=== PATIENT | female | born 1965 | race Hispanic/Latino ===

== ENCOUNTER → 2018-01-14 | Day surgery (SDC) | payer MEDICARE ==
[~2018-01-14] VITALS: Ht 149.9 cm; Wt 105.7 kg
[2018-01-14] VITALS (13 sets, daily range): BP systolic 94–177; BP diastolic 46–78
[~2018-01-14] MED LIST: ACETAMINOPHEN 325 MG TAB ONE; ASPIR 8181 MG PO; ATORVASTATIN CA20 MG PO; BUPROPION HCL75 MG PO; FENTANYL CITRATE/PF 100MCG/2 ML INJ ONE; GABAPENTIN300 MG PO; HEPARIN SOD (PORCINE) 1000 UNIT/ML 30ML ONE; HEPARIN SOD/SOD CHLORIDE 2,000 ML ONE; IOPAMIDOL 370 MG/ML 200 ML INFUS..BTL INJ ONE; LEVETIRACETAM500 MG PO; LEXAPRO10 MG PO; LIDOCAINE HCL 1% LOCAL INJ 20 ML VIAL ONE; LINZESS PO; MIDAZOLAM HCL 2 MG/2 ML VIAL ONE; NITROGLYCERIN/D5W 200 MCG/ML 250 ML ONE; OMEPRAZOLE40 MG PO; RANITIDINE HCL300 M1 PO; SODIUM CHLORIDE 0.9% 1000ML 1,000 ML ONE; TIZANIDINE HCL4 MG PO; VERAPAMIL HCL 2.5 MG/ML 2 ML VIAL ONE
--- OUTSIDE RECORDS SUMMARY | 2018-01-14 08:07 | XMS REPORT ---
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 Name Role Phone Deidra Nickerson CP Unavailable Allergies, Adverse Reactions, Alerts Substance Reaction Event Type penicillin rash Drug Allergy Problems Problem Type Condition Code Onset Dates Condition Status Assessment Panic attack F41.0 Active Problem Low back pain M54.5 Active Problem Diabetes mellitus E11.9 Active Problem IBS (irritable bowel syndrome) K58.9 Active Problem Recurrent falls R29.6 Active Problem Panic attack F41.0 Active Problem Anxiety F41.9 Active Problem Hallux valgus (acquired), unspecified foot M20.10 Active Problem Hypertension I10 Active Problem HLD (hyperlipidemia) E78.5 Active Medications Medication Code System Code Instructions Start Date End Date Status Dosage Losartan Potassium-HCTZ [facility] 18103422167 100-25 MG Orally Once a day Active 1 tablet Gabapentin [facility] [address]-19 300 MG Orally Three times a day Active 2 capsule Montelukast Sodium [facility] 67947404820 10 mg Orally Once a day Active 1 tablet in the evening Dicyclomine HCl [facility] 10359716321 10 MG Orally three times a day (tid) as needed (prn) Active 1 tablet Aspirin [facility] 9[address]71-44132 81 MG Orally Once a day Active 1 tablet Wal-Zyr D [facility] [address]-35 5-120 MG Orally Twice a day Active 1 tablet Omeprazole [facility] [address]-15 40 MG Orally once a day Active 1 capsule Cholestyramine [facility] [address]-19 Active not defined Acetaminophen-Codeine #3 [facility] [address]-71 300-30 MG Orally every 6 hrs Active 1 tablet as needed Lipitor [facility] [address]-79 40 MG Orally Once a day Mar 15, 2016 Active 1 tablet Fluticasone Propionate (Inhal) [facility] [address]-06 50 MCG/BLIST Inhalation Twice a day Active 1 puff Hydrocodone-Acetaminophen [facility] [address]-72 7.5-325 MG Orally every 6 hrs Active 1 tablet as needed BuPROPion HCl [facility] [address]-38 75 MG Orally twice a day (bid) June 28, 2016 Active 1 tablet Losartan Potassium-HCTZ [facility] 32344951812 0 Active TAKE 1 TABLET BY MOUTH EVERY DAY Simvastatin [facility] 93868411941 40 mg Orally Once a day Active 1 tablet in the evening Amlodipine Besylate [facility] 48895115067 5 MG Orally Once a day Active 1 tablet Escitalopram Oxalate [facility] [address]-45 20 mg Orally Once a day Active 1 tablet Meloxicam [facility] [address]-62 15 MG Orally Once a day Active 1 tablet Vital Signs Date/Time: June 28, 2016 BMI 45.04 Index Weight 223 lbs Height 59 in Temperature 97.7 F Blood Pressure Diastolic 80 mm Hg Blood Pressure Systolic 105 mm Hg Results No Known Results Summary Purpose eClinicalWorks Submission
--- OUTSIDE RECORDS SUMMARY | 2018-01-14 08:07 | XMS REPORT ---
Author Author Deidra Nickerson Organization eClinicalWorks Address Unknown Phone Unavailable Care Team Providers Care Advertising Executive Name Role Phone Deidra Nickerson CP Unavailable Allergies No Known Allergies Problems Problem Type Condition Code Onset Dates Condition Status Problem Low back pain M54.5 Active Problem Anxiety F41.9 Active Problem Hallux valgus (acquired), unspecified foot M20.10 Active Problem Diabetes mellitus E11.9 Active Problem HTN (hypertension), benign I10 Active Problem Panic attack F41.0 Active Problem Age-related osteoporosis without current pathological fracture M81.0 Active Problem Hypertension I10 Active Problem HLD (hyperlipidemia) E78.5 Active Problem IBS (irritable bowel syndrome) K58.9 Active Problem Recurrent falls R29.6 Active Medications No Known Medications Results No Known Results Summary Purpose eClinicalWorks Submission
--- OUTSIDE RECORDS SUMMARY | 2018-01-14 08:07 | XMS REPORT ---
Author Author Deidra Nickerson [facility] eClinicalWorks Address Unknown Phone Unavailable Care Team Providers Care Shape Hand Name Role Phone Deidra Nickerson CP Unavailable Allergies, Adverse Reactions, Alerts Substance Reaction Event Type penicillin rash Drug Allergy Problems Problem Type Condition Code Onset Dates Condition Status Problem Hallux valgus (acquired), unspecified foot M20.10 Active Problem HLD (hyperlipidemia) E78.5 Active Problem Anxiety F41.9 Active Problem Age-related osteoporosis without current pathological fracture M81.0 Active Problem HTN (hypertension), benign I10 Active Problem Seizure disorder G40.909 Active Problem Recurrent falls R29.6 Active Problem Hypertension I10 Active Problem Panic attack F41.0 Active Problem IBS (irritable bowel syndrome) K58.9 Active Assessment Low back pain M54.5 Active Assessment Hypertension I10 Active Assessment Risk for falls Z91.81 Active Assessment Seizure disorder G40.909 Active Assessment Diabetes mellitus E11.9 Active Assessment HTN (hypertension), benign I10 Active Assessment HLD (hyperlipidemia) E78.5 Active Problem Diabetes mellitus E11.9 Active Assessment Panic attack F41.0 Active Problem Low back pain M54.5 Active Medications Medication Code System Code Instructions Start Date End Date Status Dosage Linzess [facility] 72640777424 145 MCG Orally Once a day Active 1 capsule Ibuprofen [facility] 86246749522 200 MG Orally Three times a day Active 1 tablet with food or milk as needed Escitalopram Oxalate [facility] 48611075709 20 mg Orally Once a day Active 1 tablet Fluticasone Propionate (Inhal) [facility] 62580864960 50 MCG/BLIST Inhalation Twice a day Active 1 puff Omeprazole ND 96539067964 40 MG Orally once a day Active 1 capsule Doxepin HCl [facility] 27992710479 5 % Externally Four times a day Active 1 application to affected area as needed Tizanidine HCl [facility] 44530438729 4 MG Orally Three times a day Active 1 tablet as needed Gabapentin [facility] 71268635349 300 MG Orally Three times a day Active 2 capsule BuPROPion HCl [facility] 23159371281 75 MG Orally twice a day (bid) Active 1 tablet Levetiracetam [facility] 12530721960 500 MG Orally every 12 hrs Active 1 tablet Aspirin [facility] 31745310747 81 MG Orally Once a day Active 1 tablet Lipitor [facility] 11280695077 40 MG Orally Once a day Mar 15, 2016 Active 1 tablet Ranitidine HCl [facility] 14595803286 300 MG Orally Once a day Active 1 tablet at bedtime Hydrocodone-Acetaminophen [facility] 80199978983 7.5-325 MG Orally every 6 hrs Active 1 tablet as needed Cholestyramine [facility] [address]-79 Active not defined Vital Signs Date/Time: July 22, 2017 BMI 44.63 Index Weight 221 lbs Height 59 in Temperature 99.4 F Blood Pressure Diastolic 106 mm Hg Blood Pressure Systolic 155 mm Hg Results No Known Results Summary Purpose eClinicalWorks Submission
--- OUTSIDE RECORDS SUMMARY | 2018-01-14 08:07 | XMS REPORT ---
Author Author Deidra Nickerson [facility] eClinicalWorks Address Unknown Phone Unavailable Care Team Providers Care Buyers' Agent Name Role Phone Deidra Nickerson CP Unavailable Allergies, Adverse Reactions, Alerts Substance Reaction Event Type penicillin rash Drug Allergy Problems Problem Type Condition Code Onset Dates Condition Status Problem Low back pain M54.5 Active Problem Anxiety F41.9 Active Problem Hallux valgus (acquired), unspecified foot M20.10 Active Problem HTN (hypertension), benign I10 Active Problem Panic attack F41.0 Active Problem Age-related osteoporosis without current pathological fracture M81.0 Active Problem Hypertension I10 Active Problem HLD (hyperlipidemia) E78.5 Active Problem IBS (irritable bowel syndrome) K58.9 Active Problem Recurrent falls R29.6 Active Assessment HTN (hypertension), benign I10 Active Assessment HLD (hyperlipidemia) E78.5 Active Assessment Age-related osteoporosis without current pathological fracture M81.0 Active Problem Diabetes mellitus E11.9 Active Medications Medication Code System Code Instructions Start Date End Date Status Dosage Lipitor [facility] 33808102199 40 MG Orally Once a day Mar 15, 2016 Active 1 tablet Aspirin [facility] 01322368607 81 MG Orally Once a day Active 1 tablet Amlodipine Besylate ND 75536923647 5 MG Orally Once a day Active 1 tablet Gabapentin [facility] 20037860904 300 MG Orally Three times a day Active 2 capsule Dicyclomine HCl [facility] 37073057326 10 MG Orally three times a day (tid) as needed (prn) Mar 10, 2017 Active 1 tablet Hydrocodone-Acetaminophen [facility] 18272402621 7.5-325 MG Orally every 6 hrs Active 1 tablet as needed Losartan Potassium-HCTZ ND 24894665662 100-25 MG Orally Once a day Active 1 tablet Escitalopram Oxalate [facility] 77028902785 20 mg Orally Once a day Active 1 tablet Cholestyramine [facility] [address]-02 Active not defined BuPROPion HCl [facility] 02171808274 75 MG Orally twice a day (bid) June 28, 2016 Active 1 tablet Montelukast Sodium [facility] 58314691521 10 mg Orally Once a day Active 1 tablet in the evening Omeprazole [facility] 65830071199 40 MG Orally once a day Active 1 capsule Fluticasone Propionate (Inhal) [facility] 59032502033 50 MCG/BLIST Inhalation Twice a day Active 1 puff Meloxicam [facility] 96998160673 15 MG Orally Once a day Active 1 tablet Wal-Zyr D [facility] 65811415110 5-120 MG Orally Twice a day Active 1 tablet Vital Signs Date/Time: Mar 05, 2017 BMI wheelchair Index Weight wheelchair lbs Height 59 in Temperature 98.0 F Blood Pressure Diastolic 74 mm Hg Blood Pressure Systolic 134 mm Hg Results No Known Results Summary Purpose eClinicalWorks Submission
--- OUTSIDE RECORDS SUMMARY | 2018-01-14 08:07 | XMS REPORT ---
Author Author Deidra Nickerson [facility] eClinicalWorks Address Unknown Phone Unavailable Care Team Providers Care Buggyman Name Role Phone Deidra Nickerson CP Unavailable Allergies, Adverse Reactions, Alerts Substance Reaction Event Type penicillin rash Drug Allergy Encounters Encounter Location Date [facility]LLOW [place] [facility] [place] September 26, 2015 3 MONTH F/U [facility] Nov 10, 2015 3 month follow up [facility] [place] Feb 09, 2016 Problems Problem Type Condition ICD-9 Code Onset Dates Condition Status Assessment HLD (hyperlipidemia) E78.5 Active Problem Diabetes mellitus E11.9 Active Assessment Diabetes mellitus E11.9 Active Problem Recurrent falls R29.6 Active Problem Hypertension I10 Active Problem IBS (irritable bowel syndrome) K58.9 Active Problem Hallux valgus (acquired), unspecified foot M20.10 Active Problem Low back pain M54.5 Active Problem HLD (hyperlipidemia) E78.5 Active Problem Anxiety F41.9 Active Assessment Other acute nonsuppurative otitis media of right ear, recurrence not specified H65.191 Active Assessment Low back pain M54.5 Active Assessment Hypertension I10 Active Medications Medication Code System Code Instructions Start Date End Date Status Dosage Dicyclomine HCl [facility] [address]-06 10 MG Orally twice a day (bid) June 08, 2016 Active 1 capsule Omeprazole [facility] [address]-08 40 MG Orally once a day Active 1 capsule Meloxicam [facility] [address]-81 15 MG Orally Once a day Active 1 tablet Simvastatin [facility] 83849307545 40 mg Orally Once a day Active 1 tablet in the evening Amlodipine Besylate [facility] 57537509316 5 MG Orally Once a day Active 1 tablet Escitalopram Oxalate [facility] [address]-70 20 mg Orally Once a day Active 1 tablet Losartan Potassium-HCTZ [facility] 26340605227 100-25 MG Orally Once a day Active 1 tablet Losartan Potassium-HCTZ [facility] 18320004150 0 Active TAKE 1 TABLET BY MOUTH EVERY DAY Aspirin [facility] 28953-59006 81 MG Orally Once a day Active 1 tablet Cholestyramine [facility] [address]-86 Active Unknown Gabapentin [facility] [address]-64 300 MG Orally Three times a day Active 2 capsule Fluticasone Propionate (Inhal) [facility] [address]-85 50 MCG/BLIST Inhalation Twice a day Active 1 puff Levaquin [facility] [address]-95 500 MG Orally Once a day Feb 09, 2016 Feb 16, 2016 Active 1 tablet Hydrocodone-Acetaminophen [facility] [address]-50 7.5-325 MG Orally every 6 hrs Active 1 tablet as needed Wal-Zyr D [facility] [address]-62 5-120 MG Orally Twice a day Active 1 tablet Montelukast Sodium [facility] 23052911809 10 mg Orally Once a day Active 1 tablet in the evening Acetaminophen-Codeine #3 [facility] [address]-22 300-30 MG Orally every 6 hrs Active 1 tablet as needed Social History Social History Element Qualifiers Date Reported Use of recreational / street drugs? . Answer: No Feb 09, 2016 Sexual Hx: . Had sex in the last 12 months (vaginal, oral, or anal)?: No, Have you ever had an STD?: No Feb 09, 2016 Do you have pets? . Status: No Feb 09, 2016 Tobacco Use: . Are you a: never smoker Feb 09, 2016 Marital Status: . Single Feb 09, 2016 Caffeine intake? . Status: Yes, What type: Soft Drinks Feb 09, 2016 Do you exercise? . Answer: No Feb 09, 2016 Do you drink alcohol? . Status: No Feb 09, 2016 Travel outside [place]: . no Feb 09, 2016 Occupation: . disabled Feb 09, 2016 Vital Signs Date/Time: Feb 09, 2016 Weight 218 lbs Height 59 in Temperature 97.4 F Blood Pressure Diastolic 79 mm Hg Blood Pressure Systolic 104 mm Hg Immunizations Vaccine Administration Date Influenza Feb 09, 2016 Summary Purpose eClinicalWorks Submission
--- OUTSIDE RECORDS SUMMARY | 2018-01-14 08:07 | XMS REPORT | Continuity of Care Document ---
Author Author [facility] Interface Address Unknown Phone Unavailable Problems Problem Status Onset Date Classification Date Reported Comments Source Adjustment disorder with mixed anxiety and depressed mood Active Diagnosis 03/15/2015 [id number] DM Active Diagnosis 03/15/2015 [id number] HTN Active Problem 03/15/2015 2.16.840.1.541799.4.391.11.22385 RML pneumonia Active Problem 03/15/2015 [id number] Panic attack Active Problem 11/28/2017 Enayet Rahim Low back pain Active Problem 11/28/2017 Enayet Rahim Diabetes mellitus Active Diagnosis 11/28/2017 Enayet Rahim IBS Active Problem 11/28/2017 Enayet Rahim Recurrent falls Active Problem 11/28/2017 Enayet Rahim Anxiety Active Diagnosis 11/28/2017 Enayet Rahim Hallux valgus , unspecified foot Active Problem 11/28/2017 Enayet Rahim Hypertension Active Problem 11/28/2017 Enayet Rahim HLD Active Problem 11/28/2017 [id number],Enayet Rahim Seizure disorder Active Diagnosis 11/28/2017 Enayet Rahim Age-related osteoporosis without current pathological fracture Active Diagnosis 11/28/2017 Enayet Rahim Type 2 diabetes mellitus with diabetic polyneuropathy Active Problem 11/28/2017 Enayet Rahim HTN , benign Active Problem 11/28/2017 Enayet Rahim Chronic seasonal allergic rhinitis due to pollen Active Diagnosis 09/16/2016 Enayet Rahim GERD without esophagitis Active Problem 11/28/2017 Enayet Rahim Bilateral hand swelling Active Diagnosis 10/31/2017 Enayet Rahim Risk for falls Active Diagnosis 07/28/2017 German Ramirez Hemoglobin A1c less than 7.0% Active Diagnosis 05/09/2017 German Ramirez At risk for falling Active Diagnosis 11/28/2017 German Ramirez Morbid obesity due to excess calories Active Diagnosis 11/28/2017 German Ramirez Body mass index of 45.0-49.9 in adult Active Diagnosis 11/28/2017 German Ramirez Malignant neoplasm of cervix, unspecified site Active Diagnosis 11/28/2017 German Ramirez Nausea Active Diagnosis 10/02/2015 German Ramirez Acute infectious nonbacterial gastroenteritis Active Diagnosis 10/02/2015 German Ramirez Hypokalemia Active Diagnosis 10/02/2015 German Ramirez Sore throat Active Diagnosis 05/12/2016 German Ramirez Pure hypercholesterolemia Active Diagnosis 05/12/2016 German Ramirez Acute cystitis without hematuria Active Diagnosis 05/12/2016 German Ramirez Fracture, finger, distal phalanx Active Diagnosis 11/27/2015 German Ramirez Other acute nonsuppurative otitis media of right ear, recurrence not specified Active Diagnosis 02/13/2016 German Ramirez Medications Medication Details Route Status Patient Instructions Ordering Provider Order Date Source Fluticasone Propionate (Inhal) 1 puff Inhalation Active 50 MCG/BLIST Inhalation Twice a day [facility] 05/19/2018 German Ramirez Fluticasone Propionate (Inhal) 1 puff Inhalation Active 50 MCG/BLIST Inhalation Twice a day [facility] 11/25/2017 German Ramirez Fluticasone Propionate 1 spray in each nostril Nasally Active 50 MCG/ACT Nasally Once a day [facility] 11/25/2017 German Ramirez Furosemide 1 tablet Orally Active 20 MG Orally three times a week as needed for swelling. [facility] 10/21/2017 German Ramirez Dicyclomine HCl 1 tablet Orally Active 10 MG Orally three times a day (tid) as needed (prn) [facility] 03/10/2017 German Ramirez Levocetirizine Dihydrochloride 1 tablet in the evening Orally Active 5 MG Orally Once a day [facility] 09/11/2016 German Ramirez BuPROPion HCl 1 tablet Orally Active 75 MG Orally twice a day (bid) [facility] 06/28/2016 German Ramirez BuPROPion HCl 1 tablet Orally Active 75 MG Orally twice a day (bid) [facility] 06/28/2016 German Ramirez Dicyclomine HCl 1 capsule Orally Active 10 MG Orally twice a day (bid) [facility] 06/08/2016 German Ramirez Levaquin 1 tablet Orally Active 500 MG Orally Once a day [facility] 05/09/2016 German Ramirez Lipitor 1 tablet Orally Active 40 MG Orally Once a day [facility] 03/15/2016 German Ramirez Lipitor 1 tablet Orally Active 40 MG Orally Once a day [facility] 03/15/2016 German Ramirez Levaquin 1 tablet Orally Active 500 MG Orally Once a day [facility] 02/09/2016 German Ramirez Dicyclomine HCl 1 tablet Orally Active 10 MG Orally three times a day (tid) as needed (prn) [facility] 11/10/2015 German Ramirez Flagyl 1 tablet Orally Active 500 mg Orally every 8 hrs [facility] 09/26/2015 German Ramirez Cipro 1 tablet Orally Active 500 mg Orally Twice a day [facility] 09/26/2015 German Ramirez Anusol HC-1 as directed Externally Active 1 % Externally [facility] 03/06/2015 05.16.830.1.403215.4.391.11. Omeprazole 1 capsule Orally Active 20 mg Orally twice a day (bid) Krishan 05.16.830.1.394080.4.391.11. Zyrtec-D Allergy & Congestion 1 tablet Orally Active 5-120 MG Orally Twice a day Krishan 840.1.187600.4.391.11 Vanessa Aspirin EC Low Dose 1 tablet Orally Active 81 MG Orally Once a day Krishan 05.16.830.1.320231.4.391.11 Montelukast Sodium 1 tablet in the evening Orally Active 10 MG Orally Once a day [facility] [id number] Dextromethorphan HBr 15 ml as needed Orally Active 20 MG/15ML Orally every 8 hrs [facility] 840.1.700003.4.391. Metronidazole 1 application to affected area Externally Active 0.75 % Externally Once a day [facility] 840.1.609349.4.391. Vitamin D 1 capsule Orally Active 47822 UNIT Orally once a week [facility] 840.1.881552.4.391. Simvastatin 1 tablet in the evening Orally Active 40 MG Orally Once a day [facility] 840.1.716609.4.391. Losartan Potassium-HCTZ 1 tablet Orally Active 100-12.5 MG Orally Once a day [facility] 05.16.830.1.231915.4.391. Levofloxacin 1 tablet Orally Active 750 MG Orally every 24hrs w/ plenty of water [facility] 05.16.830.1.490583.4.391. Ibuprofen 1 tablet Orally Active 600 MG Orally four times a day (qid) [place] [id number]. Fluticasone Propionate 1 spray in each nostril Nasally Active 50 MCG/ACT Nasally Once a day [place] [id number]. Losartan Potassium-HCTZ 1 tablet Orally Active 100-25 MG Orally Once a day as needed [facility] Gabapentin 2 capsule Orally Active 300 MG Orally [facility] Montelukast Sodium 1 tablet in the evening Orally Active 10 mg Orally [facility] a [facility] Dicyclomine HCl 1 tablet Orally Active 10 MG Orally three times a day (tid) as needed (prn) [facility] Aspirin 1 tablet Orally Active 81 MG Orally Once a day [facility] [employer] D 1 tablet Orally Active 5-120 MG Orally Twice a day [facility] Omeprazole 1 capsule Orally Active 40 MG Orally once a day [facility] Cholestyramine not defined NA Active [facility] Acetaminophen-Codeine #3 1 tablet as needed Orally Active 300- 30 MG Orally every 6 hrs [facility] Fluticasone Propionate (Inhal) 1 puff Inhalation Active 50 MCG/BLIST Inhalation Twice a day [facility] Hydrocodone-Acetaminophen 1 tablet as needed Orally Active 7.5- 325 MG Orally every 6 hrs [facility] Losartan Potassium-HCTZ TAKE 1 TABLET BY MOUTH EVERY DAY NA Active 0 [facility] Simvastatin 1 tablet in the evening Orally Active 40 mg Orally Once a day [facility] Amlodipine Besylate 1 tablet Orally Active 5 MG Orally Once a day [facility] Escitalopram Oxalate 1 tablet Orally Active 20 mg Orally Once a day [address]16.840.1.454643.4.391.11.14453[facility] Meloxicam 1 tablet Orally Active 15 MG Orally Once a day [place] [id number] BuPROPion HCl 1 tablet Orally Active 75 MG Orally twice a day (bid) [facility] Escitalopram Oxalate 1 tablet Orally Active 20 mg Orally Once a day [facility] Hydrocodone-Acetaminophen 1 tablet as needed Orally Active 7.5- 325 MG Orally every 6 hrs [facility] Tizanidine HCl 1 tablet as needed Orally Active 4 MG Orally Three times a day [facility] Gabapentin 2 capsule Orally Active 300 MG Orally Three times a day [facility] Omeprazole 1 capsule Orally Active 40 MG Orally once a day [facility] Ibuprofen 1 tablet with food or milk as needed Orally Active 200 MG Orally Three times a day [facility] Ranitidine HCl 1 tablet at bedtime Orally Active 300 MG Orally Once a day [facility] Aspirin 1 tablet Orally Active 81 MG Orally Once a day [facility] Linzess 1 capsule Orally Active 145 MCG Orally Once a day [facility] Levetiracetam 1 tablet Orally Active 500 MG Orally every 12 hrs [facility] Doxepin HCl 1 application to affected area as needed Externally Active 5 % Externally Four times a day [facility] Gabapentin 2 capsule Orally Active 300 MG Orally Three times a day [facility] Fluticasone Propionate (Inhal) 1 puff Inhalation Active 50 MCG/BLIST Inhalation Twice a day [facility] Meloxicam 1 tablet Orally Active 15 MG Orally Once a day [facility] [employer] D 1 tablet Orally Active 5-120 MG Orally Twice a day [facility] Omeprazole 1 capsule Orally Active 20 mg Orally twice a day (bid) [facility] Tramadol HCl 1 tablet as needed by mouth Active 50 mg by mouth every eight hours FOR PAIN [facility] Edgaringrid S[facility]u Allergies, Adverse Reactions, Alerts Substance Category Reaction Severity Reaction type Status Date Reported Comments Source penicillin Adverse Reaction rash Adverse Reaction Active 11/25/2017 Edgarbiancaet lam Immunizations Immunization Date Given Site Status Last Updated Comments Source FLUCELVAX QUADRIVALENT 05/07/2017 completed Barronet [facility] Influenza 02/09/2016 completed Enbiancaraine Sanchesrenum Results Order Name Results Value Reference Range Date Interpretation Comments Source Vital Signs Vital Sign Value Date Comments Source Weight 232 11/25/2017 Enayet Rahim Height 59 11/25/2017 Enayet Rahim Temperature Oral (F) 97.6 F 11/25/2017 Enayet Rahim Diastolic (mm Hg) 91 11/25/2017 Enayet Rahim Systolic (mm Hg) 150 11/25/2017 Enayet Rahim Weight 236 10/21/2017 Enayet Rahim Height 59 10/21/2017 Enayet Rahim Temperature Oral (F) 98.5 F 10/21/2017 Enayet Rahim Diastolic (mm Hg) 91 10/21/2017 Enayet Rahim Systolic (mm Hg) 139 10/21/2017 Enayet Rahim Weight 221 08/14/2017 Enayet Rahim Height 59 08/14/2017 Enayet Rahim Temperature Oral (F) 98.6 F 08/14/2017 Enayet Rahim Diastolic (mm Hg) 100 08/14/2017 Enayet Rahim Systolic (mm Hg) 140 08/14/2017 Enayet Rahim Weight 221 07/22/2017 Enayet Rahim Height 59 07/22/2017 Enayet Rahim Temperature Oral (F) 99.4 F 07/22/2017 Enayet Rahim Diastolic (mm Hg) 106 07/22/2017 Enayet Rahim Systolic (mm Hg) 155 07/22/2017 Enayet Rahim Weight 221 05/07/2017 Enayet Rahim Height 59 05/07/2017 Enayet Rahim Temperature Oral (F) 98.7 F 05/07/2017 Enayet Rahim Diastolic (mm Hg) 101 05/07/2017 Enayet Rahim Systolic (mm Hg) 138 05/07/2017 Enayet Rahim Height 59 03/05/2017 Enayet Rahim Temperature Oral (F) 98.0 F 03/05/2017 Enayet Rahim Diastolic (mm Hg) 74 03/05/2017 Enayet Rahim Systolic (mm Hg) 134 03/05/2017 Enayet Rahim Weight 235 09/11/2016 Enayet Rahim Height 59 09/11/2016 Enayet Rahim Temperature Oral (F) 97.8 F 09/11/2016 Enayet Rahim Diastolic (mm Hg) 80 09/11/2016 Enayet Rahim Systolic (mm Hg) 110 09/11/2016 Enayet Rahim Weight 223 06/28/2016 Enayet Rahim Height 59 06/28/2016 Enayet Rahim Temperature Oral (F) 97.7 F 06/28/2016 Enayet Rahim Diastolic (mm Hg) 80 06/28/2016 Enayet Rahim Systolic (mm Hg) 105 06/28/2016 Enayet Rahim Weight 218 05/09/2016 Enayet Rahim Height 59 05/09/2016 Enayet Rahim Temperature Oral (F) 97.8 F 05/09/2016 Enayet Rahim Diastolic (mm Hg) 85 05/09/2016 Enayet Rahim Systolic (mm Hg) 141 05/09/2016 Enayet Rahim Weight 218 02/09/2016 Enayet Rahim Height 59 02/09/2016 Enayet Rahim Temperature Oral (F) 97.4 F 02/09/2016 Enayet Rahim Diastolic (mm Hg) 79 02/09/2016 Enayet Rahim Systolic (mm Hg) 104 02/09/2016 Enayet Rahim Weight 211 11/10/2015 Enayet Rahim Height 59 11/10/2015 Enayet Rahim Temperature Oral (F) 97.4 F 11/10/2015 Enayet Rahim Diastolic (mm Hg) 95 11/10/2015 Enayet Rahim Systolic (mm Hg) 132 11/10/2015 Enayet Rahim Weight 221 09/26/2015 Enayet Rahim Height 59 09/26/2015 Enayet Rahim Temperature Oral (F) 97.4 F 09/26/2015 Enayet Rahim Weight 253 03/06/2015 [id number] Height 60 03/06/2015 2.16.840.1.926842.4.391.11.34946 Temperature Oral (F) 98.3 F 03/06/2015 2.16.840.1.571860.4.391.11.51850 Heart Rate 67 03/06/2015 2.16.840.1.251355.4.391.11.67084 Diastolic (mm Hg) 77 03/06/2015 2.16.840.1.356687.4.391.11.68589 Systolic (mm Hg) 153 03/06/2015 [id number] Encounters Location Location Details Encounter Type Encounter Number Reason For Visit Attending Provider ADM Date DC Date Status Source [facility] F/U [id number] 03/06/2015 03/06/2015 [id number] German Ramirez MD, [facility] [id number] 09/26/2015 09/26/2015 German Ramirez MD, [facility] [id number] 09/26/2015 09/26/2015 German Ramirez MD, [facility] [id number] 09/26/2015 09/26/2015 German Ramirez MD, [facility] [id number] 09/26/2015 09/26/2015 German Ramirez MD, [facility] [id number] 09/26/2015 09/26/2015 German Ramirez MD, PA 3 MONTH F/U [id number] 11/10/2015 11/10/2015 German Ramirez MD, [place] 3 MONTH F/U [id number] 11/10/2015 11/10/2015 German Ramirez MD, [place] 3 MONTH F/U [id number] 11/10/2015 11/10/2015 German Ramirez MD, [place] 3 MONTH F/U [id number] 11/10/2015 11/10/2015 German Ramirez MD, PA 3 month follow up [id number] 02/09/2016 02/09/2016 German Ramirez MD, PA 3 month follow up [id number] 02/09/2016 02/09/2016 German Ramirez MD, [place] 3 month follow up [id number] 02/09/2016 02/09/2016 German Ramirez MD, [place] Test results [id number] 03/15/2016 03/15/2016 German Ramirez MD, [place] Test results [id number] 03/15/2016 03/15/2016 German Ramirez MD, PA 3 month f/u [id number] 05/09/2016 05/09/2016 German Ramirez Procedures Procedure Code Date Perfomer Comments Source
--- OUTSIDE RECORDS SUMMARY | 2018-01-14 08:07 | XMS REPORT ---
Author Author Deidra Nickerson [facility] eClinicalWorks Address Unknown Phone Unavailable Care Team Providers Care Linemarker Name Role Phone Deidra Nickerson CP Unavailable Allergies, Adverse Reactions, Alerts Substance Reaction Event Type penicillin rash Drug Allergy Encounters Encounter Location Date [facility] [place] [place] September 26, 2015 3 MONTH F/U [place] [place] Nov 10, 2015 Problems Problem Type Condition ICD-9 Code Onset Dates Condition Status Assessment HLD (hyperlipidemia) E78.5 Active Assessment Fracture, finger, distal phalanx S62.639A Active Assessment Hypertension I10 Active Problem Recurrent falls R29.6 Active Problem Hypertension I10 Active Problem IBS (irritable bowel syndrome) K58.9 Active Problem Hallux valgus (acquired), unspecified foot M20.10 Active Problem Low back pain M54.5 Active Problem HLD (hyperlipidemia) E78.5 Active Problem Anxiety F41.9 Active Assessment Recurrent falls R29.6 Active Assessment IBS (irritable bowel syndrome) K58.9 Active Assessment Anxiety F41.9 Active Assessment Low back pain M54.5 Active Medications Medication Code System Code Instructions Start Date End Date Status Dosage Meloxicam [facility] [address]-35 15 MG Orally Once a day Active 1 tablet Simvastatin [facility] 64776363660 40 mg Orally Once a day Active 1 tablet in the evening Gabapentin [facility] [address]-67 300 MG Orally Three times a day Active 1 capsule Aspirin [facility] 09337-86415 81 MG Orally Once a day Active 1 tablet Fluticasone Propionate (Inhal) [facility] [address]-78 50 MCG/BLIST Inhalation Twice a day Active 1 puff Amlodipine Besylate [facility] 37142519962 5 MG Orally Once a day Active 1 tablet Losartan Potassium-HCTZ [facility] 83562205326 100-25 MG Orally Once a day Active 1 tablet Montelukast Sodium [facility] 20710169276 10 mg Orally Once a day Active 1 tablet in the evening [employer] D [facility] [address]-79 5-120 MG Orally Twice a day Active 1 tablet Acetaminophen-Codeine #3 [facility] [address]-92 300-30 MG Orally every 6 hrs Active 1 tablet as needed Cholestyramine [facility] [address]-13 Active Unknown Escitalopram Oxalate [facility] [address]-63 20 mg Orally Once a day Active 1 tablet Dicyclomine HCl [facility] [address]-88 10 MG Orally three times a day (tid) as needed (prn) Nov 10, 2015 Dec 10, 2015 Active 1 tablet Omeprazole [facility] [address]-42 40 MG Orally once a day Active 1 capsule Social History Social History Element Qualifiers Date Reported Use of recreational / street drugs? . Answer: No Nov 10, 2015 Sexual Hx: . Had sex in the last 12 months (vaginal, oral, or anal)?: No, Have you ever had an STD?: No Nov 10, 2015 Do you have pets? . Status: No Nov 10, 2015 Tobacco Use: . Are you a: never smoker Nov 10, 2015 Marital Status: . Single Nov 10, 2015 Caffeine intake? . Status: Yes, What type: Soft Drinks Nov 10, 2015 Do you exercise? . Answer: No Nov 10, 2015 Do you drink alcohol? . Status: No Nov 10, 2015 Travel outside [place]: . no Nov 10, 2015 Occupation: . disabled Nov 10, 2015 Vital Signs Date/Time: Nov 10, 2015 Weight 211 lbs Height 59 in Temperature 97.4 F Blood Pressure Diastolic 95 mm Hg Blood Pressure Systolic 132 mm Hg Summary Purpose eClinicalWorks Submission
--- OUTSIDE RECORDS SUMMARY | 2018-01-14 08:07 | XMS REPORT ---
Author Author Deidra Nickerson Organization e[employer] Address Unknown Phone Unavailable Care Team Providers Care Welder Gas Name Role Phone Deidra Nickerson CP Unavailable [...] IBS (irritable bowel syndrome) K58.9 Active Assessment HLD (hyperlipidemia) E78.5 Active Assessment Hypertension I10 Active Assessment Panic attack F41.0 Active Problem Diabetes mellitus E11.9 Active Assessment Diabetes mellitus E11.9 Active Problem Low back pain M54.5 Active Medications No Known Medications Vital Signs Date/Time: August 14, 2017 BMI 44.63 Index Weight 221 lbs Height 59 in Temperature 98.6 F Blood Pressure Diastolic 100 mm Hg Blood Pressure Systolic 140 mm Hg Results No Known Results Summary Purpose eClinicalWorks Submission
--- OUTSIDE RECORDS SUMMARY | 2018-01-14 08:07 | XMS REPORT ---
Author Author Deidra Nickerson [facility] eClinicalWorks Address Unknown Phone Unavailable Care Team Providers Care Lean Specialist Name Role Phone Deidra Nickerson CP Unavailable Allergies, Adverse Reactions, Alerts Substance Reaction Event Type penicillin rash Drug Allergy Problems Problem Type Condition Code Onset Dates Condition Status Assessment Hypertension I10 Active Problem Low back pain M54.5 Active Problem Diabetes mellitus E11.9 Active Problem IBS (irritable bowel syndrome) K58.9 Active Problem Recurrent falls R29.6 Active Problem Panic attack F41.0 Active Problem Anxiety F41.9 Active Problem Hallux valgus (acquired), unspecified foot M20.10 Active Problem Hypertension I10 Active Problem HLD (hyperlipidemia) E78.5 Active Assessment Chronic seasonal allergic rhinitis due to pollen J30.1 Active Assessment IBS (irritable bowel syndrome) K58.9 Active Assessment Anxiety F41.9 Active Assessment HLD (hyperlipidemia) E78.5 Active Medications Medication Code System Code Instructions Start Date End Date Status Dosage Amlodipine Besylate [facility] 84003210679 5 MG Orally Once a day Active [address] [facility] [address]-84 Active not defined Gabapentin [facility] [address]-14 300 MG Orally Three times a day Active [address] [facility] [address]-60 40 MG Orally Once a day Mar 15, 2016 Active [address] [facility] [address]-36 40 MG Orally once a day Active 1 capsule Montelukast Sodium [facility] 45381007665 10 mg Orally Once a day Active 1 tablet in the evening Escitalopram Oxalate [facility] [address]-20 20 mg Orally Once a day Active [address] [facility] [address]-83 15 MG Orally Once a day Active 1 tablet Losartan Potassium-HCTZ [facility] 47668513668 0 Active TAKE 1 TABLET BY MOUTH EVERY DAY Aspirin [facility] 7[address]49-10540 81 MG Orally Once a day Active 1 tablet [facility] D [facility] [address]-87 5-120 MG Orally Twice a day Active 1 tablet Losartan Potassium-HCTZ [facility] 58534500785 100-25 MG Orally Once a day Active 1 tablet Hydrocodone-Acetaminophen [facility] [address]-69 7.5-325 MG Orally every 6 hrs Active 1 tablet as needed Fluticasone Propionate (Inhal) [facility] [address]-96 50 MCG/BLIST Inhalation Twice a day Active 1 puff Dicyclomine HCl [facility] 09098218653 10 MG Orally three times a day (tid) as needed (prn) Mar 10, 2017 Active 1 tablet Levocetirizine Dihydrochloride [facility] [address]-35 5 MG Orally Once a day September 11, 2016 Jan 09, 2017 Active 1 tablet in the evening BuPROPion HCl [facility] [address]-56 75 MG Orally twice a day (bid) June 28, 2016 Active 1 tablet Vital Signs Date/Time: September 11, 2016 BMI 47.46 Index Weight 235 lbs Height 59 in Temperature 97.8 F Blood Pressure Diastolic 80 mm Hg Blood Pressure Systolic 110 mm Hg Results No Known Results Summary Purpose eClinicalWorks Submission
--- OUTSIDE RECORDS SUMMARY | 2018-01-14 08:07 | XMS REPORT ---
Author Author Deidra Nickerson [facility] eClinicalWorks Address Unknown Phone Unavailable Care Team Providers Care Product Applications Scientist Name Role Phone Deidra Nickerson CP Unavailable Allergies, Adverse Reactions, Alerts Substance Reaction Event Type penicillin rash Drug Allergy Encounters Encounter Location Date [facility] [place] September 26, 2015 Problems Problem Type Condition ICD-9 Code Onset Dates Condition Status Assessment Nausea R11.0 Active Problem HLD (hyperlipidemia) E78.5 Active Problem Anxiety F41.9 Active Problem Hypertension I10 Active Assessment Acute infectious nonbacterial gastroenteritis A09 Active Assessment Hypokalemia E87.6 Active Problem Hallux valgus (acquired), unspecified foot M20.10 Active Problem Low back pain M54.5 Active Medications Medication Code System Code Instructions Start Date End Date Status Dosage Escitalopram Oxalate [facility] [address]-69 20 MG Orally Once a day Active 0.5 tablet Fluticasone Propionate (Inhal) [facility] [address]-95 50 MCG/BLIST Inhalation Twice a day Active 1 puff Aspirin [facility] 44528-[address]25 81 MG Orally Once a day Active 1 tablet Omeprazole [facility] 52444116973 20 mg Orally twice a day (bid) Active 1 capsule Gabapentin [facility] [address]-17 300 MG Orally Three times a day Active 1 capsule Flagyl [facility] [address]-15 500 mg Orally every 8 hrs September 26, 2015 October 03, 2015 Active 1 tablet Cholestyramine [facility] [address]-10 Active Unknown Losartan Potassium-HCTZ [facility] 77704429965 100-25 MG Orally Once a day Active 1 tablet Montelukast Sodium [facility] 27307235323 10 mg Orally Once a day Active 1 tablet in the evening Acetaminophen-Codeine #3 [facility] [address]-05 300-30 MG Orally every 6 hrs Active 1 tablet as needed Cipro [facility] [address]-33 500 mg Orally Twice a day September 26, 2015 October 03, 2015 Active 1 tablet Amlodipine Besylate [facility] 97553543560 5 MG Orally Once a day Active 1 tablet Tramadol HCl [facility] [address]-71 50 mg by mouth every eight hours FOR PAIN Active 1 tablet as needed [facility] [address]-74 5-120 MG Orally Twice a day Active 1 tablet Meloxicam [facility] [address]-06 15 MG Orally Once a day Active 1 tablet Simvastatin [facility] 85844271613 40 mg Orally Once a day Active 1 tablet in the evening Social History Social History Element Qualifiers Date Reported Use of recreational / street drugs? . Answer: No September 26, 2015 Sexual Hx: . Had sex in the last 12 months (vaginal, oral, or anal)?: No, Have you ever had an STD?: No September 26, 2015 Do you have pets? . Status: No September 26, 2015 Tobacco Use: . Are you a: never smoker September 26, 2015 Marital Status: . Single September 26, 2015 Caffeine intake? . Status: Yes, What type: Soft Drinks September 26, 2015 Do you exercise? . Answer: No September 26, 2015 Do you drink alcohol? . Status: No September 26, 2015 Travel outside [place]: . no September 26, 2015 Occupation: . disabled September 26, 2015 Vital Signs Date/Time: September 26, 2015 Weight 221 lbs Height 59 in Temperature 97.4 F Summary Purpose eClinicalWorks Submission
--- OUTSIDE RECORDS SUMMARY | 2018-01-14 08:07 | XMS REPORT ---
Author Author Deidra Nickerson [facility] eClinicalWorks Address Unknown Phone Unavailable Care Team Providers Care Line Department Supervisor Name Role Phone Deidra Nickerson CP Unavailable Allergies, Adverse Reactions, Alerts Substance Reaction Event Type penicillin rash Drug Allergy Problems Problem Type Condition Code Onset Dates Condition Status Assessment At risk for falling Z91.81 Active Problem HLD (hyperlipidemia) E78.5 Active Assessment Morbid (severe) obesity due to excess calories E66.01 Active Problem Hypertension I10 Active Assessment Body mass index (BMI) of 45.0-49.9 in adult Z68.42 Active Problem Recurrent falls R29.6 Active Problem Panic attack F41.0 Active Problem IBS (irritable bowel syndrome) K58.9 Active Problem Body mass index (BMI) of 45.0-49.9 in adult Z68.42 Active Problem Type 2 diabetes mellitus with diabetic polyneuropathy E11.42 Active Assessment Age-related osteoporosis without current pathological fracture M81.0 Active Assessment Seizure disorder G40.909 Active Problem Morbid (severe) obesity due to excess calories E66.01 Active Assessment Malignant neoplasm of cervix, unspecified site C53.9 Active Problem Age-related osteoporosis without current pathological fracture M81.0 Active Problem HTN (hypertension), benign I10 Active Problem GERD without esophagitis K21.9 Active Problem Seizure disorder G40.909 Active Assessment HLD (hyperlipidemia) E78.5 Active Assessment Hypertension I10 Active Assessment Diabetes mellitus E11.9 Active Assessment Anxiety F41.9 Active Problem Hallux valgus (acquired), unspecified foot M20.10 Active Problem Anxiety F41.9 Active Problem Diabetes mellitus E11.9 Active Problem Low back pain M54.5 Active Medications Medication Code System Code Instructions Start Date End Date Status Dosage Aspirin [place] 55791410831 81 MG Orally Once a day Active 1 tablet Tizanidine HCl ND 76187037134 4 MG Orally Three times a day Active 1 tablet as needed Hydrocodone-Acetaminophen ND 81494541614 7.5-325 MG Orally every 6 hrs Active 1 tablet as needed Ranitidine HCl NDC 56119828590 300 MG Orally Once a day Active 1 tablet at bedtime Fluticasone Propionate (Inhal) [facility] 26282921428 50 MCG/BLIST Inhalation Twice a day Nov 25, 2017 Inactive 1 puff Gabapentin [facility] 48738542650 300 MG Orally Three times a day Active 2 capsule Escitalopram Oxalate [facility] 59186099978 20 mg Orally Once a day Active 1 tablet Doxepin HCl [facility] 46141506288 5 % Externally Four times a day Active 1 application to affected area as needed Omeprazole [facility] 45462320735 40 MG Orally once a day Active 1 capsule Linzess [facility] 49327295055 145 MCG Orally Once a day Active 1 capsule Fluticasone Propionate [facility] 60084059771 50 MCG/ACT Nasally Once a day Nov 25, 2017 Active 1 spray in each nostril Lipitor [facility] 68928969570 40 MG Orally Once a day Mar 15, 2016 Active 1 tablet Vital Signs Date/Time: Nov 25, 2017 BMI 46.85 Index Weight 232 lbs Height 59 in Temperature 97.6 F Blood Pressure Diastolic 91 mm Hg Blood Pressure Systolic 150 mm Hg Results No Known Results Summary Purpose eClinicalWorks Submission
--- OUTSIDE RECORDS SUMMARY | 2018-01-14 08:07 | XMS REPORT ---
Author Author Deidra Nickerson [facility] eClinicalWorks Address Unknown Phone Unavailable Care Team Providers Care Computer Forensic Specialist Name Role Phone Deidra Nickerson CP Unavailable Allergies, Adverse Reactions, Alerts Substance Reaction Event Type penicillin Info Not Available Drug Allergy Encounters Encounter Location Date HOSPITAL F/U [facility] Mar 06, 2015 Problems Problem Type Condition ICD-9 Code Onset Dates Condition Status Assessment Adjustment disorder with mixed anxiety and depressed mood F43.23 Active Assessment HLD (hyperlipidemia) E78.5 Active Assessment Colon cancer screening Z12.11 Active Assessment DM (diabetes mellitus screen) Z13.1 Active Problem HTN (hypertension) I10 Active Problem HLD (hyperlipidemia) E78.5 Active Problem RML pneumonia J18.9 Active Assessment RML pneumonia J18.9 Active Assessment HTN (hypertension) I10 Active Problem Colon cancer screening Z12.11 Active Problem Adjustment disorder with mixed anxiety and depressed mood F43.23 Active Medications Medication Code System Code Instructions Start Date End Date Status Dosage [facility] [address]-78 20 mg Orally twice a day (bid) Active 1 capsule Zyrtec-D [facility] 62372-17426 5-120 MG Orally Twice a day Active 1 tablet Vanessa Aspirin EC Low Dose [facility] [address]-13 81 MG Orally Once a day Active 1 tablet Montelukast Sodium [facility] [address]-62 10 MG Orally Once a day Active 1 tablet in the evening Anusol HC-1 [facility] [address] 1 % Externally Mar 06, 2015 Active as directed Dextromethorphan HBr [facility] [address]-57 20 MG/15ML Orally every 8 hrs Active 15 ml as needed Metronidazole [facility] [address]-61 0.75 % Externally Once a day Active 1 application to affected area Vitamin D [facility] [address]-89 71136 UNIT Orally once a week Active 1 capsule Simvastatin [facility] [address]-28 40 MG Orally Once a day Active 1 tablet in the evening Losartan Potassium-HCTZ [facility] [address]-51 100-12.5 MG Orally Once a day Active 1 tablet Levofloxacin [facility] [address]-26 750 MG Orally every 24hrs w/ plenty of water Active 1 tablet Meloxicam [facility] [address]-41 15 MG Orally Once a day Active 1 tablet Ibuprofen [facility] [address]-14 600 MG Orally four times a day (qid) Active 1 tablet Fluticasone Propionate [facility] [address]-23 50 MCG/ACT Nasally Once a day Active 1 spray in each nostril Escitalopram Oxalate [facility] [address]-94 20 MG Orally Once a day Active 0.5 tablet Social History Social History Element Qualifiers Date Reported Tobacco Use: . Are you a: never smoker Mar 06, 2015 Use of recreational / street drugs? . Answer: No Mar 06, 2015 Marital Status: . Single Mar 06, 2015 Caffeine intake? . Status: No Mar 06, 2015 Do you exercise? . Answer: No Mar 06, 2015 Do you drink alcohol? . Status: No Mar 06, 2015 Travel outside [place]: . no Mar 06, 2015 Occupation: . DISABLED Mar 06, 2015 Vital Signs Date/Time: Mar 06, 2015 Weight 253 lbs Height 60 in Temperature 98.3 F Cardiac Monitoring Heart Rate 67 /min Blood Pressure Diastolic 77 mm Hg Blood Pressure Systolic 153 mm Hg Summary Purpose eClinicalWorks Submission
--- OUTSIDE RECORDS SUMMARY | 2018-01-14 08:07 | XMS REPORT ---
Author Author Deidra Nickerson [facility] eClinicalWorks Address Unknown Phone Unavailable Care Team Providers Care Fretted String Instrument Repairer Name Role Phone Deidra Nickerson CP Unavailable [...] Active Problem Recurrent falls R29.6 Active Assessment Influenza vaccination administered at current visit Z23 Active Assessment Hemoglobin A1c less than 7.0% R73.09 Active Assessment Anxiety F41.9 Active Assessment Diabetes mellitus E11.9 Active Assessment Hypertension I10 Active Assessment Recurrent falls R29.6 Active Assessment HLD (hyperlipidemia) E78.5 Active Problem Diabetes mellitus E11.9 Active Medications Medication Code System Code Instructions Start Date End Date Status Dosage Omeprazole [facility] 97856911478 40 MG Orally once a day Active 1 capsule Meloxicam [facility] 51802666713 15 MG Orally Once a day Active 1 tablet Fluticasone Propionate (Inhal) [facility] 45735836172 50 MCG/BLIST Inhalation Twice a day Active 1 puff Gabapentin [facility] 31987551369 300 MG Orally Three times a day Active 2 capsule Lipitor ND 99841431020 40 MG Orally Once a day Mar 15, 2016 Active 1 tablet Aspirin [facility] 86090206378 81 MG Orally Once a day Active 1 tablet Hydrocodone-Acetaminophen [facility] 01628034456 7.5-325 MG Orally every 6 hrs Active 1 tablet as needed BuPROPion HCl [facility] 69533268525 75 MG Orally twice a day (bid) Active 1 tablet Escitalopram Oxalate [facility] 98434496519 20 mg Orally Once a day Active 1 tablet Amlodipine Besylate [facility] 36442965817 5 MG Orally Once a day Active 1 tablet Cholestyramine [facility] [address]-71 Active not defined Omeprazole [facility] 64632194873 40 MG Orally once a day Active 1 capsule Losartan Potassium-HCTZ [facility] 13853960331 100-25 MG Orally Once a day as needed Inactive 1 tablet Vital Signs Date/Time: May 07, 2017 BMI 44.63 Index Weight 221 lbs Height 59 in Temperature 98.7 F Blood Pressure Diastolic 101 mm Hg Blood Pressure Systolic 138 mm Hg Results No Known Results Immunizations Vaccine Administration Date FLUCELVAX QUADRIVALENT May 07, 2017 Summary Purpose eClinicalWorks Submission
--- OUTSIDE RECORDS SUMMARY | 2018-01-14 08:07 | XMS REPORT ---
Author Author Deidra Nickerson Organization eClinicalWorks Address Unknown Phone Unavailable Care Team Providers Care Fill Technician Name Role Phone Deidra Nickerson CP Unavailable Allergies No Known Allergies Problems Problem Type Condition Code Onset Dates Condition Status Problem Anxiety F41.9 Active Problem Hypertension I10 Active Problem HLD (hyperlipidemia) E78.5 Active Problem Seizure disorder G40.909 Active Problem Age-related osteoporosis without current pathological fracture M81.0 Active Problem Type 2 diabetes mellitus with diabetic polyneuropathy E11.42 Active Problem IBS (irritable bowel syndrome) K58.9 Active Problem Recurrent falls R29.6 Active Problem HTN (hypertension), benign I10 Active Problem Panic attack F41.0 Active Problem Diabetes mellitus E11.9 Active Problem Low back pain M54.5 Active Problem Hallux valgus (acquired), unspecified foot M20.10 Active Medications No Known Medications Results No Known Results Summary Purpose eClinicalWorks Submission
--- OUTSIDE RECORDS SUMMARY | 2018-01-14 08:07 | XMS REPORT ---
Author Author Deidra Nickerson Organization eClinicalWorks Address Unknown Phone Unavailable Care Team Providers Care Project Superintendent Name Role Phone Deidra Nickerson CP Unavailable Allergies No Known Allergies Problems Problem Type Condition Code Onset Dates Condition Status Problem Hallux valgus (acquired), unspecified foot M20.10 Active Problem HLD (hyperlipidemia) E78.5 Active Problem Anxiety F41.9 Active Problem Diabetes mellitus E11.9 Active Problem Low back pain M54.5 Active Problem Age-related osteoporosis without current pathological fracture M81.0 Active Problem HTN (hypertension), benign I10 Active Problem Seizure disorder G40.909 Active Problem Recurrent falls R29.6 Active Problem Hypertension I10 Active Problem Panic attack F41.0 Active Problem IBS (irritable bowel syndrome) K58.9 Active Medications No Known Medications Results No Known Results Summary Purpose eClinicalWorks Submission
--- OUTSIDE RECORDS SUMMARY | 2018-01-14 08:07 | XMS REPORT ---
Author Author Deidra Nickerson [facility] eClinicalWorks Address Unknown Phone Unavailable Care Team Providers Care Fixture Maker Name Role Phone Deidra Nickerson CP Unavailable Allergies, Adverse Reactions, Alerts Substance Reaction Event Type penicillin rash Drug Allergy Problems Problem Type Condition Code Onset Dates Condition Status Problem HLD (hyperlipidemia) E78.5 Active Problem Recurrent falls R29.6 Active Problem Hypertension I10 Active Problem GERD without esophagitis K21.9 Active Problem Seizure disorder G40.909 Active Problem Type 2 diabetes mellitus with diabetic polyneuropathy E11.42 Active Problem Panic attack F41.0 Active Problem IBS (irritable bowel syndrome) K58.9 Active Problem Age-related osteoporosis without current pathological fracture M81.0 Active Problem HTN (hypertension), benign I10 Active Assessment GERD without esophagitis K21.9 Active Problem Diabetes mellitus E11.9 Active Problem Low back pain M54.5 Active Assessment Age-related osteoporosis without current pathological fracture M81.0 Active Problem Hallux valgus (acquired), unspecified foot M20.10 Active Assessment Bilateral hand swelling M79.89 Active Problem Anxiety F41.9 Active Medications Medication Code System Code Instructions Start Date End Date Status Dosage BuPROPion HCl ND 56822056147 75 MG Orally twice a day (bid) Active 1 tablet Escitalopram Oxalate ND 53453668076 20 mg Orally Once a day Active 1 tablet Hydrocodone-Acetaminophen ND 34258794956 7.5-325 MG Orally every 6 hrs Active 1 tablet as needed Tizanidine HCl ND 92870110627 4 MG Orally Three times a day Active 1 tablet as needed Fluticasone Propionate (Inhal) ND 53136688034 50 MCG/BLIST Inhalation Twice a day May 19, 2018 Active 1 puff Gabapentin [facility] 92297949326 300 MG Orally Three times a day Active 2 capsule Omeprazole ND 98812827560 40 MG Orally once a day Active 1 capsule Furosemide ND 71859892409 20 MG Orally three times a week as needed for swelling. October 21, 2017 Active 1 tablet Ibuprofen NDC 18870128805 200 MG Orally Three times a day Active 1 tablet with food or milk as needed Ranitidine HCl [facility] 71570621026 300 MG Orally Once a day Active 1 tablet at bedtime Aspirin [facility] 03588517905 81 MG Orally Once a day Active 1 tablet Linzess [facility] 99481330281 145 MCG Orally Once a day Active 1 capsule Levetiracetam [facility] 46257152534 500 MG Orally every 12 hrs Active 1 tablet Lipitor [facility] 67831249288 40 MG Orally Once a day Mar 15, 2016 Active 1 tablet Cholestyramine [facility] [address]-71 Active not defined Doxepin HCl [facility] 35058991427 5 % Externally Four times a day Active 1 application to affected area as needed Vital Signs Date/Time: October 21, 2017 BMI 47.66 Index Weight 236 lbs Height 59 in Temperature 98.5 F Blood Pressure Diastolic 91 mm Hg Blood Pressure Systolic 139 mm Hg Results No Known Results Summary Purpose eClinicalWorks Submission
--- OUTSIDE RECORDS SUMMARY | 2018-01-14 08:07 | XMS REPORT ---
Author Author Deidra Nickerson Organization eClinicalWorks Address Unknown Phone Unavailable Care Team Providers Care Mincing Machine Operator Name Role Phone Deidra Nickerson CP Unavailable [...]
--- OUTSIDE RECORDS SUMMARY | 2018-01-14 08:08 | XMS REPORT ---
Author Author Deidra Nickerson Organization eClinicalWorks Address Unknown Phone Unavailable Care Team Providers Care President [employer] Name Role Phone Deidra Nickerson CP Unavailable Encounters Encounter Location Date Test results [facility] [place] Mar 15, 2016 [facility] [place] September 26, 2015 3 MONTH F/U [facility] [place] Nov 10, 2015 3 month follow up [place] Feb 09, 2016 Problems Problem Type Condition ICD-9 Code Onset Dates Condition Status Problem Diabetes mellitus E11.9 Active Problem Recurrent falls R29.6 Active Problem Hypertension I10 Active Problem IBS (irritable bowel syndrome) K58.9 Active Problem Hallux valgus (acquired), unspecified foot M20.10 Active Problem Low back pain M54.5 Active Problem HLD (hyperlipidemia) E78.5 Active Problem Anxiety F41.9 Active Medications Medication Code System Code Instructions Start Date End Date Status Dosage Lipitor [facility] [address]-20 40 MG Orally Once a day Mar 15, 2016 Active 1 tablet Social History Social History Element Qualifiers [...] 2016 Occupation: . disabled Feb 09, 2016 Summary Purpose eClinicalWorks Submission
--- OUTSIDE RECORDS SUMMARY | 2018-01-14 08:08 | XMS REPORT ---
Author Author Deidra Nickerson [facility] eClinicalWorks Address Unknown Phone Unavailable Care Team Providers Care Clerical Associate Name Role Phone Deidra Nickerson Unavailable Allergies, Adverse Reactions, Alerts Substance Reaction Event Type penicillin rash Drug Allergy Encounters Encounter Location Date Test results [facility] [place] Mar 15, 2016 3 month f/u [facility] [place] May 09, 2016 [facility] [place] September 26, 2015 3 MONTH F/U [facility] [place] Nov 10, 2015 3 month follow up [facility] [place] Feb 09, 2016 Problems Problem Type Condition ICD-9 Code Onset Dates Condition Status Assessment Diabetes mellitus E11.9 Active Problem Diabetes mellitus E11.9 Active Assessment Sore throat J02.9 Active Problem Recurrent falls R29.6 Active Problem Hypertension I10 Active Problem IBS (irritable bowel syndrome) K58.9 Active Problem Hallux valgus (acquired), unspecified foot M20.10 Active Problem Low back pain M54.5 Active Problem HLD (hyperlipidemia) E78.5 Active Problem Anxiety F41.9 Active Assessment Pure hypercholesterolemia E78.00 Active Assessment Hemoglobin A1c less than 7.0% R73.09 Active Assessment Acute cystitis without hematuria N30.00 Active Medications Medication Code System Code Instructions Start Date End Date Status Dosage Aspirin [facility] [address] 81 MG Orally Once a day Active 1 tablet Amlodipine Besylate [facility] 92603996472 5 MG Orally Once a day Active 1 tablet Fluticasone Propionate (Inhal) [facility] [address]-17 50 MCG/BLIST Inhalation Twice a day Active 1 puff Omeprazole [facility] [address]-62 40 MG Orally once a day Active 1 capsule Simvastatin [facility] 92472897872 40 mg Orally Once a day Active 1 tablet in the evening Montelukast Sodium [facility] 60226263818 10 mg Orally Once a day Active 1 tablet in the evening Levaquin [facility] [address]-97 500 MG Orally Once a day May 09, 2016 May 19, 2016 Active 1 tablet Meloxicam [facility] [address]-79 15 MG Orally Once a day Active 1 tablet [facility] [address]-68 5-120 MG Orally Twice a day Active 1 tablet Escitalopram Oxalate [facility] [address]-92 20 mg Orally Once a day Active 1 tablet Gabapentin [facility] [address]-05 300 MG Orally Three times a day Active 2 capsule Cholestyramine [facility] [address]-70 Active Unknown Ac[facility]-Codeine #3 [facility] [address]-69 300-30 MG Orally every 6 hrs Active 1 tablet as needed Lipitor [facility] [address]-58 40 MG Orally Once a day Mar 15, 2016 Active 1 tablet Dicyclomine HCl [facility] 72331004652 10 MG Orally three times a day (tid) as needed (prn) Active 1 tablet Hydrocodone-Acetaminophen [facility] [address]-16 7.5-325 MG Orally every 6 hrs Active 1 tablet as needed Losartan Potassium-HCTZ [facility] 44866593385 100-25 MG Orally Once a day Active 1 tablet Losartan Potassium-HCTZ [facility] 85076716230 0 Active TAKE 1 TABLET BY MOUTH EVERY DAY Social History Social History Element Qualifiers Date Reported Use of recreational / street drugs? . Answer: No May 09, 2016 Sexual Hx: . Had sex in the last 12 months (vaginal, oral, or anal)?: No, Have you ever had an STD?: No May 09, 2016 Do you have pets? . Status: No May 09, 2016 Tobacco Use: . Are you a: never smoker May 09, 2016 Marital Status: . Single May 09, 2016 Caffeine intake? . Status: Yes, What type: Soft Drinks May 09, 2016 Do you exercise? . Answer: No May 09, 2016 Do you drink alcohol? . Status: No May 09, 2016 Travel outside [place]: . no May 09, 2016 Occupation: . disabled May 09, 2016 Family history Qualifier Description Comment Date Reported Maternal Grandmother Comment not available May 09, 2016 Paternal Grandmother Comment not available May 09, 2016 Children alive Comment not available May 09, 2016 Maternal Grandfather Comment not available May 09, 2016 Father accident May 09, 2016 Brother(s) alive Comment not available May 09, 2016 Mother apirated on potassium pill May 09, 2016 Paternal Grandfather Comment not available May 09, 2016 Sister(s) alive Comment not available May 09, 2016 Other: Comment not available May 09, 2016 General Family History Comment not available May 09, 2016 Vital Signs Date/Time: May 09, 2016 Weight 218 lbs Height 59 in Temperature 97.8 F Blood Pressure Diastolic 85 mm Hg Blood Pressure Systolic 141 mm Hg Summary Purpose eClinicalWorks Submission
[2018-01-14 10:00] LABS: BASOPHILS % 0.6 % (0.0-1.0); EOSINOPHILS # (AUTO) 0.2 (0.0-0.4); HEMATOCRIT 42.6 % (34.2-44.1); HEMOGLOBIN 14.2 g/dL (12.0-16.0); LYMPHOCYTES # (AUTO) 1.6 (1.0-3.2); LYMPHOCYTES % 25.8 % (18.0-39.1); MEAN CORPUSCULAR HEMOGLOBIN 29.5 pg (28-32); MEAN CORPUSCULAR HGB CONC 33.3 g/dL (31-35); MEAN CORPUSCULAR VOLUME 88.6 fL (81-99); MONOCYTES # (AUTO) 0.5 (0.2-0.8); MONOCYTES % 8.6 % (4.4-11.3); NEUTROPHILS # (AUTO) 3.9 (2.1-6.9); NEUTROPHILS % 61.8 % (38.7-80.0); PLATELET COUNT 282 x10e3/uL (140-360); RED BLOOD COUNT 4.81 x10e6/uL (3.6-5.1); RED CELL DISTRIBUTION WIDTH 12.1 % (11.7-14.4)
[2018-01-14 10:13] LABS: ALANINE AMINOTRANSFERASE 24 IU/L (0-55); ALBUMIN 3.6 g/dL (3.5-5.0); ALBUMIN/GLOBULIN RATIO 1.1 (0.8-2.0); ALKALINE PHOSPHATASE 86 IU/L (40-150); ANION GAP 15.9 mmol/L (8-16); BLOOD UREA NITROGEN 9 mg/dL (7-26); BUN/CREATININE RATIO 12 (6-25); CALCIUM 9.5 mg/dL (8.4-10.2); CARBON DIOXIDE 24 mmol/L (22-29); CHLORIDE 104 mmol/L (98-107); CREATININE, SERUM 0.75 mg/dL (0.57-1.11); EST GLOMERULAR FILTRATION RATE > 60 ML/MIN (60-); GLUCOSE 98 mg/dL (74-118); POTASSIUM 3.9 mmol/L (3.5-5.1); SODIUM 140 mmol/L (136-145)
--- NOTE | 2018-01-14 14:32 | Operative Report ---
DATE OF PROCEDURE: January 14, 2018 CARDIAC CATHETERIZATION REPORT INDICATIONS FOR PROCEDURE: Chest pain. PRESEDATION ASSESSMENT: The risks, the benefits and the alternatives to moderate sedation were explained to the patient. The patient's medical history, prior experience with aesthesia and diagnostic studies were reviewed prior to the procedure, and the patient was deemed an appropriate candidate for moderate sedation. Informed consent was obtained prior to the procedure. The risks, benefits and alternatives of the procedure were explained to the patient. The patient agreed to proceed. MEDICATIONS: For medications administered during the procedure, please see the nursing record. PROCEDURE IN DETAIL: The patient was prepped and draped in a sterile fashion. The right wrist was anesthetized with 1% lidocaine. A 6-Comoran sheath was inserted in the right radial artery using modified Seldinger technique. Diagnostic coronary angiography was performed using a 5-[place]an [place] radial catheter for the RCA and a 6-[place]or[place] XB 3.0 guiding catheter for the left coronary artery. Left heart catheterization was performed using the aforementioned [place] radial catheter. Multiple orthogonal views were taken of each coronary artery. All catheters were removed over a guidewire. The access site was closed using a TR band. The procedure ended without any complications. FINDINGS: No significant coronary artery disease was noted. LV end diastolic pressure was 15 mmHg. COMPLICATIONS: None. IMPLANTS: None. ESTIMATED BLOOD LOSS: 20 mL. MODERATE SEDATION TIME: Approximately 35 minutes. FINAL RECOMMENDATIONS 1. TR band management per protocol post cath. 2. Continue optimal medical therapy and risk factor control. 3. Follow up in the office 2 weeks post procedure. Job#: [id number]
== END | disposition home or self-care (01) ==
LOC: CATH LAB 08:04
PROVIDERS: ATTEND Internal Medicine
DX: I20.8 Other forms of angina pectoris (principal); I10 Essential (primary) hypertension; E66.9 Obesity, unspecified; E13.8 Other specified diabetes mellitus with unspecified complications; R06.09 Other forms of dyspnea; R00.2 Palpitations; R60.0 Localized edema; E78.2 Mixed hyperlipidemia; G47.33 Obstructive sleep apnea (adult) (pediatric); Z88.0 Allergy status to penicillin; Z79.82 Long term (current) use of aspirin; Z68.42 Body mass index [BMI] 45.0-49.9, adult; Z85.42 Personal history of malignant neoplasm of other parts of uterus; Z86.73 Personal history of transient ischemic attack (TIA), and cerebral infarction without residual deficits; Z82.49 Family history of ischemic heart disease and other diseases of the circulatory system
CPT/HCPCS: 36415; 80053; 82948; 85025; 93458; J1644; J2001; J2250; J7030; Q9967

== ENCOUNTER 2021-01-20 05:51 | Emergency (ER) | payer MEDICARE ==
[~2021-01-20] VITALS: Ht 149.9 cm; Wt 105.7 kg
[~2021-01-20 05:51] MED LIST changes: -ACETAMINOPHEN 325 MG TAB ONE; -FENTANYL CITRATE/PF 100MCG/2 ML INJ ONE; -HEPARIN SOD (PORCINE) 1000 UNIT/ML 30ML ONE; -HEPARIN SOD/SOD CHLORIDE 2,000 ML ONE; -IOPAMIDOL 370 MG/ML 200 ML INFUS..BTL INJ ONE; -LIDOCAINE HCL 1% LOCAL INJ 20 ML VIAL ONE; -MIDAZOLAM HCL 2 MG/2 ML VIAL ONE; -NITROGLYCERIN/D5W 200 MCG/ML 250 ML ONE; -SODIUM CHLORIDE 0.9% 1000ML 1,000 ML ONE; -VERAPAMIL HCL 2.5 MG/ML 2 ML VIAL ONE
[2021-01-20] MEDS ORDERED: KETOROLAC TROMETHAMINE 30 MG/ML VIAL IV STA (06:05)
[2021-01-20] MEDS ORDERED: SODIUM CHLORIDE 0.9% 1000ML 1,000 ML IV STA (06:05)
[2021-01-20] MEDS ORDERED: ONDANSETRON HCL INJ 2MG/ML 2ML 2 MG/ML VIAL IV STA (06:05)
[2021-01-20 06:20] LABS: BASOPHILS # (AUTO) 0.1 (0.0-0.1); BASOPHILS % 0.7 % (0.0-1.0); EOSINOPHILS # (AUTO) 0.2 (0.0-0.4); HEMATOCRIT 37.6 % (34.2-44.1); HEMOGLOBIN 12.8 g/dL (12.0-16.0); LYMPHOCYTES # (AUTO) 2.8 (1.0-3.2); LYMPHOCYTES % 33.3 % (18.0-39.1); MEAN CORPUSCULAR HEMOGLOBIN 30.2 pg (28-32); MEAN CORPUSCULAR VOLUME 88.7 fL (81-99); MONOCYTES # (AUTO) 0.7 (0.2-0.8); MONOCYTES % 8.8 % (4.4-11.3); NEUTROPHILS # (AUTO) 4.6 (2.1-6.9); NEUTROPHILS % 54.8 % (38.7-80.0); PLATELET COUNT 270 x10e3/uL (140-360); RED BLOOD COUNT 4.24 x10e6/uL (3.6-5.1); RED CELL DISTRIBUTION WIDTH 12.3 % (11.7-14.4)
[2021-01-20] MEDS ORDERED: KETOROLAC TROMETHAMINE 30 MG/ML VIAL ONE (06:23)
[2021-01-20] MEDS ORDERED: ONDANSETRON HCL INJ 2MG/ML 2ML 2 MG/ML VIAL ONE (06:23)
[2021-01-20 06:39] LABS: ALBUMIN 3.8 g/dL (3.5-5.0); ANION GAP 13.9 mmol/L (8-16); CREATININE, SERUM 0.83 mg/dL (0.57-1.11); MAGNESIUM 1.8 MG/DL (1.3-2.1)
[2021-01-20 06:41] LABS: POTASSIUM 2.9 mmol/L (3.5-5.1)
[2021-01-20] MEDS ORDERED: POTASSIUM CHLORIDE 20 MEQ TAB CR PO STA (06:42)
[2021-01-20 06:46] LABS: CREATINE KINASE MB 3.3 ng/mL (0-5.0)
[2021-01-20] MEDS ORDERED: SODIUM CHLORIDE 0.9% 50ML 50 ML ONE (07:06)
[2021-01-20] MEDS ORDERED: IOPAMIDOL 370 MG/ML 200 ML INFUS..BTL INJ ONE (07:06)
[2021-01-20 07:19] LABS: CLARITY,URINE CLOUDY (CLEAR); COLOR,URINE YELLOW (YELLOW); KETONES,URINE TRACE (NEGATIVE); LEUKOCYTE ESTERASE ,URINE NEGATIVE (NEGATIVE); NITRITE,URINE NEGATIVE (NEGATIVE); PROTEIN,URINE DIPSTICK NEGATIVE (NEGATIVE)
[2021-01-20 07:24] LABS: RBC,URINE 0-5 /HPF (0-5)
[2021-01-20 07:25] LABS: AMPHETAMINES SCREEN,URINE NEGATIVE (NEGATIVE); BACTERIA,URINE FEW /HPF; BENZODIAZEPINES SCREEN,URINE NEGATIVE (NEGATIVE); EPITHELIAL CELLS,URINE MANY /LPF; PHENCYCLIDINE SCREEN,URINE NEGATIVE (NEGATIVE)
[2021-01-20 08:41] VITALS: BP 137/78
[2021-01-20] MEDS ORDERED: DICYCLOMINE HCL 20 MG/2 ML VIAL IM ONE ×2 (08:45)
== END 2021-01-20 09:05 | disposition home or self-care (01) ==
LOC: ER 08:00
DX: R10.13 Epigastric pain (principal); E87.6 Hypokalemia; E78.5 Hyperlipidemia, unspecified; K21.9 Gastro-esophageal reflux disease without esophagitis; M54.9 Dorsalgia, unspecified; G89.29 Other chronic pain
CPT/HCPCS: 36415; 71045; 74177; 80053; 80307; 80320; 81001; 82150; 82550; 82553; 83690; 83735; 83880; 84484; 85025; 87086; 87186; 93005; 99284; C9113; J0500; J1885; J2405; J7030; Q9967

== ENCOUNTER 2021-03-02 10:35 | Emergency (ER) | payer MEDICARE ==
[~2021-03-02] VITALS: Ht 144.8 cm; Wt 99.8 kg
[2021-03-02 11:03] LABS: BASOPHILS % 0.5 % (0.0-1.0); EOSINOPHILS # (AUTO) 0.1 (0.0-0.4); EOSINOPHILS % 1.7 % (0.0-6.0); HEMATOCRIT 38.5 % (34.2-44.1); HEMOGLOBIN 12.7 g/dL (12.0-16.0); LYMPHOCYTES # (AUTO) 1.8 (1.0-3.2); LYMPHOCYTES % 30.3 % (18.0-39.1); MEAN CORPUSCULAR HEMOGLOBIN 29.7 pg (28-32); MEAN CORPUSCULAR VOLUME 90.2 fL (81-99); MONOCYTES # (AUTO) 0.5 (0.2-0.8); NEUTROPHILS # (AUTO) 3.4 (2.1-6.9); NEUTROPHILS % 58.3 % (38.7-80.0); PLATELET COUNT 299 x10e3/uL (140-360); RED BLOOD COUNT 4.27 x10e6/uL (3.6-5.1); RED CELL DISTRIBUTION WIDTH 12.2 % (11.7-14.4)
[2021-03-02 11:25] LABS: ALBUMIN 3.5 g/dL (3.5-5.0); ANION GAP 13.1 mmol/L (8-16); CALCIUM 8.9 mg/dL (8.4-10.2); CREATININE, SERUM 0.69 mg/dL (0.57-1.11); POTASSIUM 3.1 mmol/L (3.5-5.1)
[2021-03-02] MEDS ORDERED: POTASSIUM CHLORIDE 20 MEQ TAB CR PO ONE (11:43)
[2021-03-02] MEDS ORDERED: IOPAMIDOL 370 MG/ML 200 ML INFUS..BTL INJ ONE (13:50)
[2021-03-02] MEDS ORDERED: SODIUM CHLORIDE 0.9% 50ML 50 ML ONE (13:50)
== END 2021-03-02 14:18 | disposition home or self-care (01) ==
LOC: ER 10:47
DX: R07.89 Other chest pain (principal); R06.02 Shortness of breath; E78.5 Hyperlipidemia, unspecified; K21.9 Gastro-esophageal reflux disease without esophagitis; Z85.841 Personal history of malignant neoplasm of brain; Z85.42 Personal history of malignant neoplasm of other parts of uterus; Z86.16 Personal history of COVID-19
CPT/HCPCS: 36415; 71045; 74177; 80053; 84484; 85025; 93005; 99284; Q9967

== ENCOUNTER 2023-12-24 13:43 | Inpatient (IN) | payer MEDICARE ==
[~2023-12-24] VITALS: Ht 149.9 cm; Wt 106.1 kg
[2023-12-24] MEDS ORDERED: SODIUM CHLORIDE FLUSH 10 ML SYR IV PRN (14:15)
[2023-12-24 14:20] LABS: BASOPHILS % 0.3 % (0.0-1.0); EOSINOPHILS % 0.6 % (0.0-6.0); HEMATOCRIT 39.4 % (34.2-44.1); HEMOGLOBIN 13.4 g/dL (12.0-16.0); LYMPHOCYTES # (AUTO) 2.2 (1.0-3.2); LYMPHOCYTES % 35.6 % (18.0-39.1); MEAN CORPUSCULAR HEMOGLOBIN 30.3 pg (28-32); MEAN CORPUSCULAR VOLUME 89.1 fL (81-99); MONOCYTES # (AUTO) 0.5 (0.2-0.8); MONOCYTES % 7.5 % (4.4-11.3); NEUTROPHILS # (AUTO) 3.5 (2.1-6.9); NEUTROPHILS % 55.7 % (38.7-80.0); PLATELET COUNT 287 x10e3/uL (140-360); RED BLOOD COUNT 4.42 x10e6/uL (3.6-5.1); RED CELL DISTRIBUTION WIDTH 12.4 % (11.7-14.4); WHITE BLOOD COUNT 6.26 x10e3/uL (4.8-10.8)
[2023-12-24 14:38] LABS: ALANINE AMINOTRANSFERASE 28 IU/L (0-55); ALBUMIN 3.7 g/dL (3.5-5.0); ALBUMIN/GLOBULIN RATIO 0.9 (0.8-2.0); ALKALINE PHOSPHATASE 47 IU/L (40-150); ANION GAP 14.8 mmol/L (8-16); BILIRUBIN,TOTAL 0.7 mg/dL (0.2-1.2); BLOOD UREA NITROGEN 12 mg/dL (7-26); BUN/CREATININE RATIO 17 (6-25); CALCIUM 9.3 mg/dL (8.4-10.2); CARBON DIOXIDE 24 mmol/L (22-29); CHLORIDE 101 mmol/L (98-107); CREATININE, SERUM 0.71 mg/dL (0.57-1.11); EST GLOMERULAR FILTRATION RATE 97 ML/MIN (>=60); GLUCOSE 134 mg/dL (74-118); SODIUM 137 mmol/L (136-145); TOTAL PROTEIN 7.6 g/dL (6.5-8.1)
[2023-12-24 14:40] LABS: POTASSIUM 2.8 mmol/L (3.5-5.1)
[2023-12-24 14:46] LABS: TROPONIN I < 0.001 ng/mL (0-0.300)
[2023-12-24] MEDS ORDERED: IOPAMIDOL 370 MG/ML 100 ML INFUS..BTL INJ ONE (15:22)
[2023-12-24] MEDS ORDERED: SODIUM CHLORIDE 0.9% 100 ML ONE (15:22)
[2023-12-24] MEDS ORDERED: SODIUM CHLORIDE 0.9% 1000ML 1,000 ML ONE (15:51)
[2023-12-24] MEDS: POTASSIUM CHLORIDE 20 MEQ TAB CR PO ONE (15:56)
[2023-12-24] MEDS: MECLIZINE HCL 12.5 MG TAB PO ONE (15:56)
[2023-12-24] MEDS: POTASSIUM CHLORIDE 20MEQ/100ML 200 ML IV ONE (15:57)
[2023-12-24] MEDS: ACETAMINOPHEN 325 MG TAB PO ONE (16:13)
[2023-12-24] MEDS ORDERED: SODIUM CHLORIDE FLUSH 10 ML SYR INJ PRN (17:00)
[2023-12-24] MEDS: ASPIRIN 81 MG CHEW TAB PO ONE ×2 (17:57→18:36)
[2023-12-24] MEDS ORDERED: HYDRALAZINE HCL 20 MG/ML VIAL IV PRN (19:15)
[2023-12-24 20:00] VITALS: RESP 18; TEMP 98
[2023-12-24 20:24] LABS: CREATINE KINASE 132 IU/L (29-168)
[2023-12-24 20:30] LABS: TROPONIN I < 0.001 ng/mL (0-0.300)
[2023-12-24 21:00] VITALS: PULSE 57
[2023-12-24 21:02] VITALS: PULSE 58; RESP 14; O2SAT 100
[2023-12-25] VITALS (13 sets, daily range): BP systolic 111–142; BP diastolic 62–97; PULSE 55–63; RESP 17–22; TEMP 97–98.4; O2SAT 98–100
[2023-12-25] MEDS: ACETAMINOPHEN 325 MG TAB PO PRN (00:20)
[2023-12-25] MEDS: MAGNESIUM SULFATE 2GM/50ML 50 ML IV ONE (00:56)
[2023-12-25] MEDS ORDERED: MECLIZINE HCL 12.5 MG TAB PO PRN (01:00)
[2023-12-25] MEDS ORDERED: GABAPENTIN100 MG PO (02:19)
[2023-12-25] MEDS ORDERED: ROSUVASTATIN CA20 MG (02:19)
[2023-12-25] MEDS ORDERED: ESCITALOPRAM OX20 MG (02:19)
[2023-12-25] MEDS ORDERED: FAMOTIDINE20 MG PO (02:19)
[2023-12-25] MEDS ORDERED: LEVOCETIRIZINE D5 MG (02:19)
[2023-12-25] MEDS ORDERED: SENNA LAX8.6 MG PO (02:19)
[2023-12-25] MEDS ORDERED: HYZAAR 100-251 EACH (02:19)
[2023-12-25] MEDS ORDERED: CYCLOBENZAPRINE10 MG PO (02:19)
[2023-12-25 05:13] LABS: BASOPHILS % 0.5 % (0.0-1.0); EOSINOPHILS # (AUTO) 0.1 (0.0-0.4); EOSINOPHILS % 1.9 % (0.0-6.0); HEMOGLOBIN 12.3 g/dL (12.0-16.0); LYMPHOCYTES # (AUTO) 2.6 (1.0-3.2); LYMPHOCYTES % 45.8 % (18.0-39.1); MEAN CORPUSCULAR HEMOGLOBIN 30.3 pg (28-32); MEAN CORPUSCULAR HGB CONC 32.4 g/dL (31-35); MEAN CORPUSCULAR VOLUME 93.6 fL (81-99); MONOCYTES # (AUTO) 0.6 (0.2-0.8); MONOCYTES % 10.6 % (4.4-11.3); NEUTROPHILS # (AUTO) 2.3 (2.1-6.9); NEUTROPHILS % 40.8 % (38.7-80.0); PLATELET COUNT 252 x10e3/uL (140-360); RED BLOOD COUNT 4.06 x10e6/uL (3.6-5.1); RED CELL DISTRIBUTION WIDTH 12.5 % (11.7-14.4); WHITE BLOOD COUNT 5.65 x10e3/uL (4.8-10.8)
[2023-12-25 05:44] LABS: ALBUMIN 3.4 g/dL (3.5-5.0); ANION GAP 12.2 mmol/L (8-16); BILIRUBIN,TOTAL 0.6 mg/dL (0.2-1.2); CALCIUM 8.7 mg/dL (8.4-10.2); CREATININE, SERUM 0.67 mg/dL (0.57-1.11); TOTAL PROTEIN 6.9 g/dL (6.5-8.1)
[2023-12-25 05:47] LABS: POTASSIUM 3.2 mmol/L (3.5-5.1)
[2023-12-25] MEDS: FAMOTIDINE 20 MG TAB PO SCH (05:47)
[2023-12-25 06:08] LABS: CREATINE KINASE 126 IU/L (29-168)
[2023-12-25 06:20] LABS: TROPONIN I < 0.001 ng/mL (0-0.300)
[2023-12-25 06:26] LABS: CHOL/HDL RATIO 4.3 (3.0-3.6); PHOSPHORUS 3.3 MG/DL (2.3-4.7)
[2023-12-25 06:47] LABS: FREE T4 (FREE THYROXINE) 0.97 ng/dL (0.8-1.8); THYROID STIMULATING HORMONE 3.238 uIU/mL (0.350-4.940)
[2023-12-25] MEDS: DOCUSATE SODIUM 100 MG CAP PO SCH (08:12)
[2023-12-25] MEDS: ASPIRIN 81 MG ENTERIC COATED PO SCH (08:12)
[2023-12-25] MEDS: ACETAMIN/BUTALBITAL/CAFFEINE TAB PO PRN (13:29)
[2023-12-25] MEDS: PANTOPRAZOLE SOD 40 MG TABEC PO SCH (14:46)
[2023-12-25] MEDS: HYDROCODONE/APAP 5MG-325MG TAB PO PRN (14:47)
[2023-12-25] MEDS: POTASSIUM CHLORIDE 10MEQ EA PO ONE (23:40)
[2023-12-26] VITALS (10 sets, daily range): BP systolic 125–148; BP diastolic 68–82; PULSE 55–75; RESP 17–22; TEMP 97.6–98.2; O2SAT 98–100
[2023-12-26 07:16] LABS: ANION GAP 11.6 mmol/L (8-16); CALCIUM 8.6 mg/dL (8.4-10.2); CREATININE, SERUM 0.72 mg/dL (0.57-1.11); POTASSIUM 3.6 mmol/L (3.5-5.1)
[2023-12-26] MEDS ORDERED: FLONASE ALLERG9.9 ML (16:51)
[2023-12-26] MEDS: ASPIRIN 81 MG CHEW TAB PO ONE (18:04)
[2023-12-26] MEDS: ATORVASTATIN 20 MG TAB PO SCH (21:34)
[2023-12-27] VITALS (11 sets, daily range): BP systolic 117–145; BP diastolic 61–95; PULSE 52–74; RESP 16–18; TEMP 97.1–98.2; O2SAT 96–100
[2023-12-27] MEDS: DONNATAL/LIDOCAINE/MAALOX 30 ML SUSP PO ONE (00:30)
[2023-12-27] MEDS ORDERED: MAGNESIUM/ALUMINUM/SIMETHICONE 30 ML UDC ONE (01:08)
[2023-12-27] MEDS ORDERED: BELLADONNA ALK/PHENOBARBITAL 5 ML UDC ONE (01:08)
[2023-12-27] MEDS ORDERED: LIDOCAINE VISC 2% SOLN 15 ML UDC ONE (01:08)
[2023-12-27] MEDS: ESCITALOPRAM OXALATE 10 MG TAB PO SCH (08:24)
[2023-12-27] MEDS: SENNOSIDES 8.6 MG TAB PO PRN (08:24)
[2023-12-27] MEDS: POLYETHYLENE GLYCOL 3350 17 GM PACK PO PRN (08:24)
[2023-12-27] MEDS: ONDANSETRON HCL INJ 2MG/ML 2ML 2 MG/ML VIAL IV PRN (08:25)
[2023-12-27] MEDS: SALINE 0.65% NAS SOLN 1 SPRAY BTL PRN (13:47)
[2023-12-27] MEDS: CYCLOBENZAPRINE HCL 10 MG TAB PO PRN (17:53)
[2023-12-28 03:27] VITALS: BP 103/59; PULSE 58; RESP 19; TEMP 97.8; O2SAT 99
[2023-12-28 08:00] VITALS: BP 139/82; PULSE 62; RESP 17; TEMP 97.5; O2SAT 99
[2023-12-28 08:51] VITALS: PULSE 112; RESP 18; O2SAT 97
[2023-12-28 12:00] VITALS: BP 150/78; PULSE 61; RESP 18; TEMP 97.7; O2SAT 100
[2023-12-28 15:59] VITALS: BP 136/72; PULSE 58; RESP 18; TEMP 97.7; O2SAT 100
== END 2023-12-28 16:41 | disposition home or self-care (01) | DRG 392 ==
LOC: ER 13:57 → ERHOLD 16:58 → IMCU 23:41 → OBSVTOIN 12-26 10:00
PROVIDERS: ADMIT Internal Medicine; ATTEND Internal Medicine
DX: K21.9 Gastro-esophageal reflux disease without esophagitis (principal); I69.351 Hemiplegia and hemiparesis following cerebral infarction affecting right dominant side; I45.2 Bifascicular block; E66.01 Morbid (severe) obesity due to excess calories; Z68.42 Body mass index [BMI] 45.0-49.9, adult; R42 Dizziness and giddiness; K76.0 Fatty (change of) liver, not elsewhere classified; E87.6 Hypokalemia; E83.42 Hypomagnesemia; F41.8 Other specified anxiety disorders; K80.20 Calculus of gallbladder without cholecystitis without obstruction; R51.9 Headache, unspecified; I10 Essential (primary) hypertension; F31.9 Bipolar disorder, unspecified; E78.5 Hyperlipidemia, unspecified; K57.90 Diverticulosis of intestine, part unspecified, without perforation or abscess without bleeding; R21 Rash and other nonspecific skin eruption; Z63.79 Other stressful life events affecting family and household; Z79.82 Long term (current) use of aspirin; I25.2 Old myocardial infarction; Z85.841 Personal history of malignant neoplasm of brain; Z85.42 Personal history of malignant neoplasm of other parts of uterus; Z88.0 Allergy status to penicillin
CPT/HCPCS: 36415; 70450; 71045; 71275; 74174; 76705; 80048; 80053; 80061; 82550; 82948; 83036; 83735; 83880; 84100; 84439; 84443; 84484; 85025; 93005; 94760; 94799; 95819; 99252; 99284; G0378; J2405; J2470; J3475; J3480; J7030; J7050; Q9967

== ENCOUNTER 2024-01-26 23:31 | Emergency (ER) | payer MEDICARE ==
[~2024-01-26] VITALS: Ht 149.9 cm; Wt 106.1 kg
[~2024-01-26 23:31] MED LIST changes: +CYCLOBENZAPRINE10 MG PO; +ESCITALOPRAM OX20 MG; +FAMOTIDINE20 MG PO; +FLONASE ALLERG9.9 ML; +GABAPENTIN100 MG PO; +HYZAAR 100-251 EACH; +LEVOCETIRIZINE D5 MG; +ROSUVASTATIN CA20 MG; +SENNA LAX8.6 MG PO
[2024-01-27 01:47] VITALS: PULSE 66; RESP 18; TEMP 97.2; O2SAT 99
== END 2024-01-27 01:48 | disposition home or self-care (01) ==
LOC: ER 23:34
DX: M25.562 Pain in left knee (principal); M25.561 Pain in right knee; M25.571 Pain in right ankle and joints of right foot; W01.0XXA Fall on same level from slipping, tripping and stumbling without subsequent striking against object, initial encounter; Y93.01 Activity, walking, marching and hiking; Y92.481 Parking lot as the place of occurrence of the external cause; E78.5 Hyperlipidemia, unspecified; K21.9 Gastro-esophageal reflux disease without esophagitis; M54.9 Dorsalgia, unspecified; G89.29 Other chronic pain; I25.2 Old myocardial infarction; Z86.73 Personal history of transient ischemic attack (TIA), and cerebral infarction without residual deficits; Z85.42 Personal history of malignant neoplasm of other parts of uterus
CPT/HCPCS: 99283

== ENCOUNTER 2024-05-03 12:37 | Observation (INO) | payer MEDICARE ==
[~2024-05-03] VITALS: Ht 149.9 cm; Wt 108.9 kg
[~2024-05-03 12:37] MED LIST changes: -HYZAAR 100-251 EACH; +HYZAAR 100-251 EACH PO; -ROSUVASTATIN CA20 MG; +ROSUVASTATIN CA20 MG PO
[2024-05-03] MEDS ORDERED: ASPIRIN 81 MG CHEW TAB ONE (12:53)
[2024-05-03] MEDS: ASPIRIN 81 MG CHEW TAB PO ONE ×2 (12:57→16:01)
[2024-05-03] MEDS ORDERED: SODIUM CHLORIDE FLUSH 10 ML SYR IV PRN (13:00)
[2024-05-03 13:12] LABS: BASOPHILS # (AUTO) 0.1 (0.0-0.1); BASOPHILS % 0.9 % (0.0-1.0); EOSINOPHILS # (AUTO) 0.1 (0.0-0.4); EOSINOPHILS % 1.9 % (0.0-6.0); HEMATOCRIT 41.7 % (34.2-44.1); HEMOGLOBIN 13.9 g/dL (12.0-16.0); LYMPHOCYTES # (AUTO) 1.8 (1.0-3.2); LYMPHOCYTES % 30.7 % (18.0-39.1); MEAN CORPUSCULAR HEMOGLOBIN 29.2 pg (28-32); MEAN CORPUSCULAR HGB CONC 33.3 g/dL (31-35); MEAN CORPUSCULAR VOLUME 87.6 fL (81-99); MONOCYTES # (AUTO) 0.4 (0.2-0.8); MONOCYTES % 7.4 % (4.4-11.3); NEUTROPHILS # (AUTO) 3.5 (2.1-6.9); NEUTROPHILS % 58.9 % (38.7-80.0); PLATELET COUNT 282 x10e3/uL (140-360); RED BLOOD COUNT 4.76 x10e6/uL (3.6-5.1); RED CELL DISTRIBUTION WIDTH 12.9 % (11.7-14.4); WHITE BLOOD COUNT 5.84 x10e3/uL (4.8-10.8)
[2024-05-03 13:26] LABS: ALBUMIN 3.6 g/dL (3.5-5.0); ALBUMIN/GLOBULIN RATIO 0.9 (0.8-2.0); ANION GAP 16.8 mmol/L (8-16); BILIRUBIN,TOTAL 0.8 mg/dL (0.2-1.2); CALCIUM 8.9 mg/dL (8.4-10.2); CREATININE, SERUM 0.81 mg/dL (0.57-1.11); POTASSIUM 3.8 mmol/L (3.5-5.1); TOTAL PROTEIN 7.5 g/dL (6.5-8.1)
[2024-05-03 13:31] LABS: TROPONIN I 0.012 ng/mL (0-0.300)
[2024-05-03] MEDS ORDERED: ONDANSETRON HCL INJ 2MG/ML 2ML 2 MG/ML VIAL IV PRN (14:45)
[2024-05-03] MEDS ORDERED: SODIUM CHLORIDE FLUSH 10 ML SYR INJ PRN (14:45)
[2024-05-03 16:01] VITALS: PULSE 81; RESP 19; TEMP 98.4
[2024-05-03 16:50] VITALS: BP 145/82; PULSE 50; RESP 19; TEMP 98; O2SAT 98
[2024-05-03] MEDS ORDERED: FLUOXETINE HCL20 M1 PO (17:38)
[2024-05-03] MEDS ORDERED: HYDROXYZIN10 MG/5 ML PO (17:38)
[2024-05-03 18:13] VITALS: BP 145/82; PULSE 50; RESP 18; TEMP 98; O2SAT 98
[2024-05-03] MEDS ORDERED: HYDRALAZINE HCL 20 MG/ML VIAL IV PRN (19:15)
[2024-05-03] MEDS ORDERED: HYDROXYZINE HCL 50 MG PO PRN (19:15)
[2024-05-03 20:00] VITALS: BP 145/82; PULSE 50; RESP 18; TEMP 98; O2SAT 98
[2024-05-03 20:06] VITALS: BP 141/84; PULSE 53; RESP 18; TEMP 98.3; O2SAT 98
[2024-05-03] MEDS: CYCLOBENZAPRINE HCL 10 MG TAB PO PRN (21:29)
[2024-05-03] MEDS: GABAPENTIN 100 MG CAP PO SCH (21:29)
[2024-05-03] MEDS: SENNOSIDES 8.6 MG TAB PO SCH (21:29)
[2024-05-03] MEDS: FAMOTIDINE 20 MG TAB PO SCH (21:30)
[2024-05-03] MEDS: LISINOPRIL 10 MG TAB PO SCH (21:30)
[2024-05-03 22:18] LABS: TROPONIN I 0.001 ng/mL (0-0.300)
[2024-05-04 00:06] VITALS: BP 122/80; PULSE 63; RESP 18; TEMP 98.2; O2SAT 96
[2024-05-04 03:35] VITALS: BP 128/70; PULSE 58; RESP 18; TEMP 98.1; O2SAT 97
[2024-05-04 07:14] LABS: BASOPHILS % 0.7 % (0.0-1.0); EOSINOPHILS # (AUTO) 0.1 (0.0-0.4); EOSINOPHILS % 2.2 % (0.0-6.0); HEMATOCRIT 39.2 % (34.2-44.1); HEMOGLOBIN 12.9 g/dL (12.0-16.0); LYMPHOCYTES # (AUTO) 2.1 (1.0-3.2); LYMPHOCYTES % 38.2 % (18.0-39.1); MEAN CORPUSCULAR HGB CONC 32.9 g/dL (31-35); MEAN CORPUSCULAR VOLUME 91.2 fL (81-99); MONOCYTES # (AUTO) 0.5 (0.2-0.8); MONOCYTES % 8.5 % (4.4-11.3); NEUTROPHILS # (AUTO) 2.8 (2.1-6.9); PLATELET COUNT 229 x10e3/uL (140-360); RED CELL DISTRIBUTION WIDTH 12.9 % (11.7-14.4); WHITE BLOOD COUNT 5.55 x10e3/uL (4.8-10.8)
[2024-05-04 07:44] LABS: ALBUMIN 3.2 g/dL (3.5-5.0); ALBUMIN/GLOBULIN RATIO 0.9 (0.8-2.0); ANION GAP 13.7 mmol/L (8-16); BILIRUBIN,TOTAL 0.7 mg/dL (0.2-1.2); CALCIUM 8.5 mg/dL (8.4-10.2); CREATININE, SERUM 0.69 mg/dL (0.57-1.11); POTASSIUM 3.7 mmol/L (3.5-5.1); TOTAL PROTEIN 6.7 g/dL (6.5-8.1)
[2024-05-04 08:01] LABS: CREATINE KINASE 61 IU/L (29-168)
[2024-05-04 08:08] LABS: TROPONIN I < 0.001 ng/mL (0-0.300)
[2024-05-04 08:25] VITALS: BP 144/79; PULSE 54; RESP 18; TEMP 97.8; O2SAT 100
[2024-05-04] MEDS: ASPIRIN 81 MG CHEW TAB PO SCH (09:38)
[2024-05-04] MEDS: PANTOPRAZOLE SOD 40 MG TABEC PO SCH (09:38)
[2024-05-04] MEDS: ESCITALOPRAM OXALATE 10 MG TAB PO SCH (09:39)
[2024-05-04 11:30] VITALS: BP 144/79; PULSE 54; RESP 18; TEMP 97.8; O2SAT 100
[2024-05-04 14:37] VITALS: BP 138/78; PULSE 55; RESP 18; TEMP 97.5; O2SAT 100
[2024-05-04] MEDS: ACETAMINOPHEN 325 MG TAB PO PRN (17:04)
[2024-05-04 17:34] VITALS: BP 156/75; PULSE 54; RESP 20; TEMP 98.3; O2SAT 99
== END 2024-05-04 18:24 | disposition home or self-care (01) ==
LOC: ER 12:43 → ERHOLD 14:44 → MED/SURG3 16:43
PROVIDERS: ADMIT Internal Medicine; ATTEND Internal Medicine
DX: R07.89 Other chest pain (principal); R07.2 Precordial pain; R00.1 Bradycardia, unspecified; I10 Essential (primary) hypertension; I25.10 Atherosclerotic heart disease of native coronary artery without angina pectoris; F41.8 Other specified anxiety disorders; I25.2 Old myocardial infarction; E78.5 Hyperlipidemia, unspecified; E66.01 Morbid (severe) obesity due to excess calories; Z68.42 Body mass index [BMI] 45.0-49.9, adult; K21.9 Gastro-esophageal reflux disease without esophagitis; M54.50 Low back pain, unspecified; G89.29 Other chronic pain; Z86.73 Personal history of transient ischemic attack (TIA), and cerebral infarction without residual deficits; Z85.841 Personal history of malignant neoplasm of brain; Z85.42 Personal history of malignant neoplasm of other parts of uterus; Z90.710 Acquired absence of both cervix and uterus; I45.10 Unspecified right bundle-branch block
CPT/HCPCS: 36415 ×2; 71045; 80053 ×2; 82550 ×2; 83880; 84484 ×2; 85025 ×2; 85379; 93005; 93306; 94760; 97161; 99284; G0378 ×2; S0164

== ENCOUNTER → 2024-06-09 | Outpatient (REF) | payer MEDICARE ==
[~2024-06-09] MED LIST changes: +FLUOXETINE HCL20 M1 PO; +HYDROXYZIN10 MG/5 ML PO
== END ==
LOC: NM 11:01
PROVIDERS: ATTEND Nurse Practitioner
DX: K80.20 Calculus of gallbladder without cholecystitis without obstruction (principal)
CPT/HCPCS: 78227; A9537